=== PATIENT | female | born 1950 | race Caucasian/White ===

== ENCOUNTER 2019-10-07 10:20 | Outpatient (CLI) | payer MEDICARE, OTHER, SELFPAY ==
--- NOTE | ~2019-10-07 | MM_ITS ---
EXAMINATION: MM screening [facility] BI w leslie HISTORY: Screening mammogram TECHNIQUE: Craniocaudal and mediolateral oblique 3-D tomosynthesis images were obtained and synthetic 2-D images were generated. CAD analysis was submitted and interpreted. COMPARISON: Comparison to multiple prior studies sequentially, with oldest reviewed study dated 12/25. BREAST PARENCHYMAL COMPOSITION: There are scattered areas of fibroglandular density. FINDINGS: There is no evidence of suspicious mass, calcification, or architectural distortion to sugg est malignancy in either breast. There has been no suspicious interval change. IMPRESSION: 1. No mammographic evidence of malignancy. 2. Recommend routine screening mammography in one year. BI-RADS Category 1: Negative Reviewed, dictated and finalized at location A.
== END 2019-10-07 10:21 | disposition home or self-care (01) ==
PROVIDERS: PCP Internal Medicine; Visit Provider Internal Medicine
DX: Z12.31 Encounter for screening mammogram for malignant neoplasm of breast (principal)
CPT/HCPCS: 77063; 77067

== ENCOUNTER 2020-01-30 09:03 | Outpatient (CLI) | payer MEDICARE, OTHER, SELFPAY ==
[2020-01-30 09:48] LABS: Hemoglobin 14.8 g/dL (12.0-15.0); Mean Corpuscular HGB Conc 32.2 g/dl (32-36); Mean Corpuscular Hemoglobin 29.7 pg (26-34); Mean Corpuscular Volume 92.4 fl (80-100); Mean Platelet Volume 9.5 fl (7.4-10.4); Platelet Count Result 286 k/mm3 (150-375); Red Blood Count 4.98 M/mm3 (4.2-5.4); Red Cell Distribution Width 14.6 % (11.5-14.5); White Blood Count 6.6 K/mm3 (4.5-10.0)
[2020-01-30 09:59] LABS: Alanine Aminotransferase 18 U/L (4-35); Albumin Level 3.9 g/dL (3.5-5.1); Alkaline Phosphatase 153 U/L (38-126); Anion Gap 6 mmol/L (8-16); Aspartate Amino Transferase 11 U/L (14-36); Bilirubin,Total 0.4 mg/dL (0.2-1.3); Blood Urea Nitrogen 22 mg/dL (7-17); Calcium 8.3 mg/dL (8.4-10.2); Carbon Dioxide 27 mmol/L (22-30); Chloride 106 mmol/L (98-107); Cholesterol 190 mg/dL (0-200); Estimated Glomerular Filt Rate 55; Glucose 127 mg/dL (65-105); HDL Direct 57 mg/dL; Potassium 4.5 mmol/L (3.4-5.0); Sodium 139 mmol/L (137-145); Triglycerides 147 mg/dL (<150)
[2020-01-30 10:00] LABS: Hemoglobin A1C 6.1 % (<5.7)
[2020-01-30 10:10] LABS: LDL Cholesterol Direct 92 mg/dL
[2020-02-02 10:12] LABS: Mitochondrial (M2) Ab (IgG) <=20.0 U (<=20.0)
== END 2020-01-30 09:04 | disposition home or self-care (01) ==
LOC: ANHLAB 09:05
PROVIDERS: PCP Internal Medicine; Visit Provider Internal Medicine
DX: R74.8 Abnormal levels of other serum enzymes (principal); I10 Essential (primary) hypertension; R53.83 Other fatigue; R73.9 Hyperglycemia, unspecified
CPT/HCPCS: 36415; 80053; 80061; 83036; 83520; 84443; 85027

== ENCOUNTER 2021-01-09 11:59 | Outpatient (CLI) | payer MEDICARE, OTHER, SELFPAY ==
[2021-01-09 12:21] LABS: Basophils Absolute Auto 0.1 K/mm3 (0.0-0.1); Basophils Percent Auto 1.1 % (0.2-1.2); Eosinophils Absolute Auto 0.2 K/mm3 (0-0.3); Eosinophils Percent Auto 2.9 % (0-4.4); Hematocrit 47.4 % (37.0-47.0); Hemoglobin 15.1 g/dL (12.0-15.0); Immature Granulocyte Absolute 0.02 K/mm3 (0.00-0.031); Immature Granulocyte Percent A 0.3 % (0-0.5); Lymphocytes Absolute Auto 2.14 K/mm3 (0.9-3.2); Lymphocytes Percent Auto 29.8 % (18.3-44.2); Mean Corpuscular HGB Conc 31.9 g/dl (32-36); Mean Corpuscular Hemoglobin 30.2 pg (26-34); Mean Corpuscular Volume 94.8 fl (80-100); Mean Platelet Volume 9.9 fl (7.4-10.4); Monocytes Absolute Auto 0.6 K/mm3 (0.1-0.6); Monocytes Percent Auto 8.2 % (2.6-8.5); Neutrophils Absolute Auto 4.2 K/mm3 (1.3-6.7); Neutrophils Percent Auto 57.7 % (45.5-73.1); Platelet Count Result 249 k/mm3 (150-375); Red Cell Distribution Width 14.6 % (11.5-14.5); White Blood Count 7.2 K/mm3 (4.5-10.0)
[2021-01-09 12:59] LABS: Hemoglobin A1C 6.4 % (<5.7)
[2021-01-09 13:53] LABS: Alanine Aminotransferase 22 U/L (4-35); Alkaline Phosphatase 154 U/L (38-126); Anion Gap 7 mmol/L (8-16); Aspartate Amino Transferase 16 U/L (14-36); Bilirubin,Total 0.6 mg/dL (0.2-1.3); Blood Urea Nitrogen 21 mg/dL (7-17); Calcium 8.8 mg/dL (8.4-10.2); Carbon Dioxide 27 mmol/L (22-30); Chloride 107 mmol/L (98-107); Cholesterol 212 mg/dL (0-200); Estimated Glomerular Filt Rate 55; Glucose 118 mg/dL (65-110); HDL Direct 62 mg/dL; Potassium 4.3 mmol/L (3.4-5.0); Sodium 141 mmol/L (137-145); Triglycerides 145 mg/dL (<150)
[2021-01-09 13:59] LABS: LDL Cholesterol Direct 86 mg/dL
[2021-01-09 14:54] LABS: Folic Acid 4.5 ng/mL (2.76->20)
== END 2021-01-09 12:00 | disposition home or self-care (01) ==
LOC: ANHLAB 12:01
PROVIDERS: PCP Internal Medicine; Visit Provider Internal Medicine
DX: R53.83 Other fatigue (principal); R73.9 Hyperglycemia, unspecified; E78.5 Hyperlipidemia, unspecified
CPT/HCPCS: 36415; 80053; 80061; 82607; 82746; 83036; 84443; 85025

== ENCOUNTER 2022-02-04 09:15 | Outpatient (CLI) | payer MEDICARE, OTHER, SELFPAY ==
[2022-02-04 10:10] LABS: Basophils Absolute Auto 0.1 K/mm3 (0.0-0.1); Basophils Percent Auto 1.1 % (0.2-1.2); Eosinophils Absolute Auto 0.2 K/mm3 (0-0.3); Eosinophils Percent Auto 2.6 % (0-4.4); Hematocrit 45.6 % (37.0-47.0); Hemoglobin 14.7 g/dL (12.0-15.0); Immature Granulocyte Absolute 0.02 K/mm3 (0.00-0.031); Immature Granulocyte Percent A 0.3 % (0-0.5); Lymphocytes Absolute Auto 2.52 K/mm3 (0.9-3.2); Lymphocytes Percent Auto 31.5 % (18.3-44.2); Mean Corpuscular HGB Conc 32.2 g/dl (32-36); Mean Corpuscular Hemoglobin 30.6 pg (26-34); Mean Platelet Volume 9.3 fl (7.4-10.4); Monocytes Absolute Auto 0.8 K/mm3 (0.1-0.6); Monocytes Percent Auto 9.6 % (2.6-8.5); Neutrophils Absolute Auto 4.4 K/mm3 (1.3-6.7); Neutrophils Percent Auto 54.9 % (45.5-73.1); Platelet Count Result 272 k/mm3 (150-375); Red Cell Distribution Width 15.2 % (11.5-14.5)
[2022-02-04 10:20] LABS: Alanine Aminotransferase 25 U/L (6-35); Albumin Level 4.1 g/dL (3.5-5.1); Alkaline Phosphatase 152 U/L (38-126); Anion Gap 13 mmol/L (8-16); Aspartate Amino Transferase 15 U/L (14-36); Bilirubin,Total 0.6 mg/dL (0.2-1.3); Blood Urea Nitrogen 17 mg/dL (7-17); Calcium 8.2 mg/dL (8.4-10.2); Carbon Dioxide 28 mmol/L (22-30); Chloride 102 mmol/L (98-107); Cholesterol 207 mg/dL (0-200); Estimated Glomerular Filt Rate 54; Glucose 130 mg/dL (65-110); HDL Direct 63 mg/dL; Potassium 4.4 mmol/L (3.4-5.0); Sodium 143 mmol/L (137-145); Triglycerides 138 mg/dL (<150)
[2022-02-04 10:31] LABS: LDL Cholesterol Direct 94 mg/dL
== END 2022-02-04 09:16 | disposition home or self-care (01) ==
PROVIDERS: PCP Internal Medicine; Visit Provider Internal Medicine
DX: E78.5 Hyperlipidemia, unspecified (principal); R53.83 Other fatigue; R73.9 Hyperglycemia, unspecified; I10 Essential (primary) hypertension
CPT/HCPCS: 36415; 80053; 80061; 85025

== ENCOUNTER 2022-08-10 09:15 | Outpatient (CLI) | payer MEDICARE, SELFPAY ==
[2022-08-10 10:07] LABS: Basophils Absolute Auto 0.1 K/mm3 (0.0-0.1); Basophils Percent Auto 0.9 % (0.2-1.2); Eosinophils Absolute Auto 0.2 K/mm3 (0-0.3); Eosinophils Percent Auto 2.6 % (0-4.4); Hematocrit 47.4 % (37.0-47.0); Hemoglobin 14.7 g/dL (12.0-15.0); Immature Granulocyte Absolute 0.02 K/mm3 (0.00-0.031); Immature Granulocyte Percent A 0.3 % (0-0.5); Lymphocytes Absolute Auto 2.51 K/mm3 (0.9-3.2); Lymphocytes Percent Auto 33.1 % (18.3-44.2); Mean Corpuscular Hemoglobin 30.2 pg (26-34); Mean Corpuscular Volume 97.5 fl (80-100); Mean Platelet Volume 9.6 fl (7.4-10.4); Monocytes Absolute Auto 0.7 K/mm3 (0.1-0.6); Monocytes Percent Auto 9.2 % (2.6-8.5); Neutrophils Absolute Auto 4.1 K/mm3 (1.3-6.7); Neutrophils Percent Auto 53.9 % (45.5-73.1); Platelet Count Result 290 k/mm3 (150-375); Red Blood Count 4.86 M/mm3 (4.2-5.4); Red Cell Distribution Width 14.9 % (11.5-14.5); White Blood Count 7.6 K/mm3 (4.5-10.0)
[2022-08-10 10:41] LABS: Alanine Aminotransferase 33 U/L (6-35); Albumin Level 4.2 g/dL (3.5-5.1); Alkaline Phosphatase 167 U/L (38-126); Anion Gap 7 mmol/L (8-16); Aspartate Amino Transferase 16 U/L (14-36); Bilirubin,Total 0.8 mg/dL (0.2-1.3); Blood Urea Nitrogen 23 mg/dL (7-17); Calcium 8.4 mg/dL (8.4-10.2); Carbon Dioxide 29 mmol/L (22-30); Chloride 106 mmol/L (98-107); Cholesterol 205 mg/dL (0-200); Estimated Glomerular Filt Rate > 60; Glucose 122 mg/dL (65-110); HDL Direct 57 mg/dL; Potassium 4.2 mmol/L (3.4-5.0); Sodium 142 mmol/L (137-145); Triglycerides 126 mg/dL (<150)
[2022-08-10 10:52] LABS: LDL Cholesterol Direct 94 mg/dL
[2022-08-10 11:00] LABS: Hemoglobin A1C 6.2 % (<5.7)
[2022-08-10 11:48] LABS: Folic Acid > 20.0 ng/mL (2.76->20)
[2022-08-10 13:07] LABS: Vitamin D 25 Hydroxy 32.4 ng/mL
== END 2022-08-10 09:16 | disposition home or self-care (01) ==
PROVIDERS: PCP Internal Medicine; Visit Provider Internal Medicine
DX: K21.9 Gastro-esophageal reflux disease without esophagitis (principal); R73.9 Hyperglycemia, unspecified; R53.83 Other fatigue; E78.5 Hyperlipidemia, unspecified; R74.8 Abnormal levels of other serum enzymes; E53.8 Deficiency of other specified B group vitamins; E55.9 Vitamin D deficiency, unspecified
CPT/HCPCS: 36415; 80053; 80061; 82306; 82607; 82746; 83036; 84443; 85025

== ENCOUNTER 2022-09-14 18:46 | Emergency (ER) | payer MEDICARE, SELFPAY ==
--- NOTE | ~2022-09-14 | CT_ITS ---
Non-contrast CT scan of the Abdomen and Pelvis Clinical indication: Right flank pain Technique: 2.5 mm axial scans were obtained through the abdomen and pelvis without intravenous or or al contrast. Dose reduction technique was used on this scan by utilizing automated exposure control a nd iterative reconstruction technique. The dose-length product (DLP) was 1158.62 mGy-cm. Findings: Images through the lung bases reveal bibasilar scarring and right basilar calcified granul omas. Small hiatal hernia present. There is no evidence of renal or ureteral calculi. The kidneys and the ureters are nondilated. The liver, spleen, pancreas, and adrenals appear normal. Cholecystectomy clips are present. There is no aortic aneurysm. There is no evidence of bowel obstruction. No evidence to suggest appendicitis. Images through the pelvis were performed. There is no evidence of ascites or lymphadenopathy. Urinary bladder unremarkable. Patient is post hysterectomy. No pelvic mass seen. Impression: Small hiatal hernia. No other significant findings. Reviewed, dictated and finalized at [facility]. Impression: Small hiatal hernia. No other significant findings.
[2022-09-14 19:26] VITALS: BP 149/103; PULSE 94; RESP 16; TEMP 36.5; O2SAT 97
[2022-09-14 20:32] LABS: Basophils Absolute Auto 0.1 K/mm3 (0.0-0.1); Basophils Percent Auto 1.1 % (0.2-1.2); Eosinophils Absolute Auto 0.1 K/mm3 (0-0.3); Hematocrit 49.8 % (37.0-47.0); Hemoglobin 16.2 g/dL (12.0-15.0); Immature Granulocyte Absolute 0.02 K/mm3 (0.00-0.031); Immature Granulocyte Percent A 0.2 % (0-0.5); Lymphocytes Absolute Auto 2.27 K/mm3 (0.9-3.2); Lymphocytes Percent Auto 27.5 % (18.3-44.2); Mean Corpuscular HGB Conc 32.5 g/dl (32-36); Mean Corpuscular Hemoglobin 31.2 pg (26-34); Mean Corpuscular Volume 95.8 fl (80-100); Mean Platelet Volume 9.3 fl (7.4-10.4); Monocytes Absolute Auto 0.7 K/mm3 (0.1-0.6); Monocytes Percent Auto 7.9 % (2.6-8.5); Neutrophils Absolute Auto 5.1 K/mm3 (1.3-6.7); Neutrophils Percent Auto 62.3 % (45.5-73.1); Platelet Count Result 286 k/mm3 (150-375); Red Cell Distribution Width 14.8 % (11.5-14.5); White Blood Count 8.3 K/mm3 (4.5-10.0)
[2022-09-14 20:43] LABS: Alanine Aminotransferase 39 U/L (6-35); Albumin Level 4.6 g/dL (3.5-5.1); Alkaline Phosphatase 165 U/L (38-126); Anion Gap 10 mmol/L (8-16); Aspartate Amino Transferase 19 U/L (14-36); Bilirubin,Total 0.7 mg/dL (0.2-1.3); Blood Urea Nitrogen 18 mg/dL (7-17); Calcium 8.7 mg/dL (8.4-10.2); Carbon Dioxide 25 mmol/L (22-30); Chloride 105 mmol/L (98-107); Estimated CRCL calculation 67 ml/min; Estimated Glomerular Filt Rate > 60; Glucose 119 mg/dL (65-110); Potassium 4.2 mmol/L (3.4-5.0); Sodium 140 mmol/L (137-145)
[2022-09-14 22:22] LABS: Appearance Urine Clear (Clear); Bilirubin Urine Negative (Negative); Blood Urine Negative (Negative); Color Urine Yellow (Yellow); Glucose Urine UA Negative (Negative); Ketones Urine Negative (Negative); Leukocyte Esterase Ur Negative LEU/UL (Negative); Nitrate Urine Negative (Negative); Protein Urine Negative (Negative); Specific Grav Ur 1.013 (1.001-1.035); pH Urine 6.5 (5.0-9.0)
[2022-09-14 22:28] LABS: Add Urine Microscopic? NO
[2022-09-14 23:34] VITALS: BP 156/90; PULSE 82; RESP 15; TEMP 37.1; O2SAT 98
[2022-09-15 01:16] VITALS: BP 130/73; PULSE 83; RESP 15; O2SAT 97
--- NOTE | 2022-09-15 03:14 | ED.GENADULT ---
HPI - General Adult General Chief complaint: Urogenital-Female <Adelina Ventura PA-C - Last Filed: 09/15/22 04:07> Stated complaint: flank pain <HUDSON Ugarte Last Filed: 09/15/22 04:07> Time Seen by Provider: 09/15/22 00:33 <HUDSON Ugarte Last Filed: 09/15/22 04:07> Source: patient <HUDSON Ugarte Last Filed: 09/15/22 04:07> Mode of arrival: ambulatory <HUDSON Ugarte Last Filed: 09/15/22 04:07> Limitations: no limitations <HUDSON Ugarte Last Filed: 09/15/22 04:07> History of Present Illness HPI narrative: Patient is a 71-year-old female who presents the ED with report of right flank pain. Patient reports she had mild twinges in her right flank/mid back region on Monday. She started drinking more water to try to flush her system. Pain became more severe pain around 5 PM. She describes the pain as spasms, worse with any type of movement. Pain does not radiate to abdomen. She has tried taking Tylenol at home without much improvement. She does report mild nausea, but denies any vomiting, diarrhea, constipation, fevers, urinary symptoms, chest pain, difficulty breathing, pain with inspiration. Denies history of similar pain. Denies history of kidney stones. Denies any recent heavy lifting or strenuous activity. <Adelina Ventura PA-C - Last Filed: 09/15/22 04:07> Related Data Home medications: Home Medications Medication Instructions Recorded Confirmed acetaminophen 325 mg capsule 325 mg PO Q6H PRN 07/07/20 08/12/22 (Tylenol) <HUDSON Ugarte Last Filed: 09/15/22 04:07> Allergies/adverse reactions: Allergies Allergy/AdvReac Type Severity Reaction Status Date / Time aspirin Allergy Mild throat Verified 08/12/22 13:01 swelling codeine Allergy Mild hallucinati Verified 08/12/22 13:01 ons meperidine Allergy Mild tachycardia Verified 08/12/22 13:01 NSAIDS (Non-Steroidal Allergy Mild throat Verified 08/12/22 13:01 Anti-Inflamma swelling Penicillins Allergy Mild rash Verified 08/12/22 13:01 Quinolones Allergy Mild HIVES Verified 08/12/22 13:01 vancomycin Allergy Mild HIVES Verified 08/12/22 13:01 <Adelina Ventura PA-C - Last Filed: 09/15/22 04:07> Review of Systems Review of Systems: CONSTITUTIONAL: Denies fever, chills, or sweats. CARDIOVASCULAR: Denies chest pain. RESPIRATORY: Denies cough or dyspnea. GASTROINTESTINAL: See HPI. GENITOURINARY: Denies dysuria or hematuria. MUSCULOSKELETAL: See HPI. NEUROLOGIC: Denies headache, numbness, or weakness. <Adelina Ventura PA-C - Last Filed: 09/15/22 04:07> All systems reviewed & are unremarkable except as noted in HPI and below <Adelina Ventura PA-C - Last Filed: 09/15/22 04:07> [facility] Past Medical History Medical History: Medical History Essential (primary) hypertension Pure hypercholesterolemia <Adelina Ventura PA-C - Last Filed: 09/15/22 04:07> Surgical History Surgical History: Surgical History History of hysterectomy <Adelina Ventura PA-C - Last Filed: 09/15/22 04:07> Family History Family History: Family History Father Family history of diabetes mellitus in first degree relative, Onset Age: 72 Mother Hypertension Patient's mother is Sibling Heart attack Other Cerebrovascular accident Diabetes mellitus <Adelina Ventura PA-C - Last Filed: 09/15/22 04:07> Social History Social History: Social History Smoking status: Former smoker Second hand tobacco smoke exposure: No Smoking end date: 06/05/70 Alcohol intake: never Substance use: never Lack o
--- NOTE | 2022-09-15 03:23 | PC.NURSE ---
Patient stated that she did not want IV Tylenol or IV fluids and would prefer Tylenol PO. Notified
[2022-09-15] MEDS: CYCLOBENZAPRINE HCL 5 MG TABLET PO (03:31)
[2022-09-15] MEDS: ACETAMINOPHEN 500 MG TABLET 1000 MG PO (03:32)
[2022-09-15 04:01] VITALS: PULSE 75; RESP 15; O2SAT 94
[2022-09-15 05:01] VITALS: BP 141/77; PULSE 66; RESP 17; TEMP 36.4; O2SAT 98
== END 2022-09-15 05:02 | disposition home or self-care (01) ==
PROVIDERS: General Practice; Emergency Provider Emergency Medicine; PCP Internal Medicine
DX: R10.9 Unspecified abdominal pain (principal); M62.838 Other muscle spasm; I10 Essential (primary) hypertension; E78.00 Pure hypercholesterolemia, unspecified; Z87.891 Personal history of nicotine dependence
CPT/HCPCS: 36415; 74176; 80053; 81003; 85025; 99284; A9270

== ENCOUNTER 2022-10-05 13:04 | Outpatient (CLI) | payer MEDICARE, SELFPAY ==
--- NOTE | ~2022-10-05 | CT_ITS ---
Non-contrast CT scan of the Abdomen and Pelvis Clinical indication: Right flank pain Technique: 2.5 mm axial scans were obtained through the abdomen and pelvis without intravenous or or al contrast. Dose reduction technique was used on this scan by utilizing automated exposure control a nd iterative reconstruction technique. The dose-length product (DLP) was 1420.08 mGy-cm. COMPARISON: 09/15/2022 Findings: Images through the lung bases reveal no abnormalities. Small hiatal hernia noted. There is no evidence of renal or ureteral calculi. The kidneys and the ureters are nondilated. The liver, spleen, pancreas, and adrenals appear normal. Cholecystectomy clips are present. There is no aortic aneurysm. There is no evidence of bowel obstruction. Images through the pelvis were performed. There is no evidence of ascites or lymphadenopathy. Urinary bladder unremarkable. No pelvic mass seen. Impression: Small hiatal hernia, otherwise unremarkable exam. Reviewed, dictated and finalized at [facility]. Impression: Small hiatal hernia, otherwise unremarkable exam.
== END 2022-10-05 13:05 | disposition home or self-care (01) ==
PROVIDERS: PCP Internal Medicine; Visit Provider Physician Assistant
DX: R10.9 Unspecified abdominal pain (principal); K44.9 Diaphragmatic hernia without obstruction or gangrene
CPT/HCPCS: 74176

== ENCOUNTER 2023-02-16 09:16 | Outpatient (CLI) | payer MEDICARE, SELFPAY ==
[2023-02-16 09:35] LABS: Basophils Absolute Auto 0.1 K/mm3 (0.0-0.1); Eosinophils Absolute Auto 0.2 K/mm3 (0-0.3); Eosinophils Percent Auto 2.8 % (0-4.4); Hematocrit 48.6 % (37.0-47.0); Hemoglobin 15.4 g/dL (12.0-15.0); Immature Granulocyte Absolute 0.02 K/mm3 (0.00-0.031); Immature Granulocyte Percent A 0.3 % (0-0.5); Mean Corpuscular HGB Conc 31.7 g/dl (32-36); Mean Corpuscular Hemoglobin 30.5 pg (26-34); Mean Corpuscular Volume 96.2 fl (80-100); Mean Platelet Volume 9.3 fl (7.4-10.4); Monocytes Absolute Auto 0.6 K/mm3 (0.1-0.6); Monocytes Percent Auto 8.4 % (2.6-8.5); Neutrophils Absolute Auto 3.8 K/mm3 (1.3-6.7); Neutrophils Percent Auto 55.5 % (45.5-73.1); Platelet Count Result 259 k/mm3 (150-375); Red Blood Count 5.05 M/mm3 (4.2-5.4); Red Cell Distribution Width 14.5 % (11.5-14.5); White Blood Count 6.9 K/mm3 (4.5-10.0)
[2023-02-16 09:44] LABS: Alanine Aminotransferase 29 U/L (6-35); Albumin Level 4.2 g/dL (3.5-5.1); Alkaline Phosphatase 143 U/L (38-126); Anion Gap 3 mmol/L (8-16); Aspartate Amino Transferase 17 U/L (14-36); Bilirubin,Total 0.6 mg/dL (0.2-1.3); Blood Urea Nitrogen 20 mg/dL (7-17); Calcium 8.8 mg/dL (8.4-10.2); Carbon Dioxide 32 mmol/L (22-30); Chloride 104 mmol/L (98-107); Cholesterol 219 mg/dL (0-200); Estimated Glomerular Filt Rate 54; Glucose 142 mg/dL (65-110); HDL Direct 58 mg/dL; Magnesium 1.9 mg/dL (1.6-2.3); Potassium 4.6 mmol/L (3.4-5.0); Sodium 139 mmol/L (137-145); Triglycerides 165 mg/dL (<150)
[2023-02-16 09:55] LABS: LDL Cholesterol Direct 105 mg/dL
[2023-02-16 10:28] LABS: Vitamin D 25 Hydroxy 27.2 ng/mL
[2023-02-20 23:25] LABS: Mitochondrial (M2) Ab (IgG) <=20.0 U (<=20.0)
== END 2023-02-16 09:17 | disposition home or self-care (01) ==
PROVIDERS: PCP Internal Medicine; Visit Provider Internal Medicine
DX: E78.5 Hyperlipidemia, unspecified (principal); I10 Essential (primary) hypertension; R53.83 Other fatigue; R73.9 Hyperglycemia, unspecified; R74.8 Abnormal levels of other serum enzymes; E55.9 Vitamin D deficiency, unspecified
CPT/HCPCS: 36415; 80053; 80061; 82306; 82607; 83036; 83520; 83735; 84443; 85025

== ENCOUNTER → 2023-03-13 14:53 | Outpatient (REF) | payer MEDICARE, SELFPAY | LOC: ANHLAB 14:53 | PROVIDERS: PCP Internal Medicine; Visit Provider Plastic Surgery | DX: R22.0 Localized swelling, mass and lump, head (principal) | CPT/HCPCS: 88305; 88342 ==

== ENCOUNTER 2023-08-09 09:01 | Outpatient (CLI) | payer MEDICARE, SELFPAY ==
[2023-08-09 09:32] LABS: Basophils Absolute Auto 0.1 K/mm3 (0.0-0.1); Eosinophils Absolute Auto 0.2 K/mm3 (0-0.3); Eosinophils Percent Auto 2.9 % (0-4.4); Hematocrit 47.4 % (37.0-47.0); Hemoglobin 14.9 g/dL (12.0-15.0); Immature Granulocyte Absolute 0.03 K/mm3 (0.00-0.031); Immature Granulocyte Percent A 0.4 % (0-0.5); Lymphocytes Absolute Auto 2.52 K/mm3 (0.9-3.2); Lymphocytes Percent Auto 32.8 % (18.3-44.2); Mean Corpuscular HGB Conc 31.4 g/dl (32-36); Mean Corpuscular Hemoglobin 30.6 pg (26-34); Mean Corpuscular Volume 97.3 fl (80-100); Mean Platelet Volume 9.5 fl (7.4-10.4); Monocytes Absolute Auto 0.7 K/mm3 (0.1-0.6); Monocytes Percent Auto 8.5 % (2.6-8.5); Neutrophils Absolute Auto 4.2 K/mm3 (1.3-6.7); Neutrophils Percent Auto 54.4 % (45.5-73.1); Platelet Count Result 281 k/mm3 (150-375); Red Blood Count 4.87 M/mm3 (4.2-5.4); Red Cell Distribution Width 14.8 % (11.5-14.5); White Blood Count 7.7 K/mm3 (4.5-10.0)
[2023-08-09 09:42] LABS: Alanine Aminotransferase 25 U/L (6-35); Alkaline Phosphatase 181 U/L (38-126); Anion Gap 6 mmol/L (8-16); Aspartate Amino Transferase 15 U/L (14-36); Bilirubin,Total 0.6 mg/dL (0.2-1.3); Blood Urea Nitrogen 20 mg/dL (7-17); Calcium 8.8 mg/dL (8.4-10.2); Carbon Dioxide 29 mmol/L (22-30); Chloride 107 mmol/L (98-107); Cholesterol 201 mg/dL (0-200); Estimated Glomerular Filt Rate 54; Glucose 110 mg/dL (65-110); HDL Direct 59 mg/dL; Potassium 3.9 mmol/L (3.4-5.0); Sodium 142 mmol/L (137-145); Triglycerides 162 mg/dL (<150)
[2023-08-09 09:53] LABS: LDL Cholesterol Direct 96 mg/dL
[2023-08-09 10:27] LABS: Vitamin D 25 Hydroxy 24.3 ng/mL
[2023-08-09 10:41] LABS: Hemoglobin A1C 6.4 % (<5.7)
== END 2023-08-09 09:02 | disposition home or self-care (01) ==
LOC: ANHLAB 09:05
PROVIDERS: PCP Internal Medicine; Visit Provider Internal Medicine
DX: E55.9 Vitamin D deficiency, unspecified (principal); E78.5 Hyperlipidemia, unspecified; I10 Essential (primary) hypertension; R53.83 Other fatigue; R73.9 Hyperglycemia, unspecified
CPT/HCPCS: 36415; 80053; 80061; 82306; 83036; 83735; 84443; 85025

== ENCOUNTER 2023-08-24 11:46 | Emergency (ER) | payer MEDICARE, SELFPAY ==
--- NOTE | ~2023-08-24 | CT_ITS ---
EXAMINATION: CT abdomen pelvis w con INDICATION: Lower abdominal and rectal pain TECHNIQUE: Computed tomographic images of the abdomen and pelvis were obtained after the administrati on of 100 cc of Omnipaque 350 intravenous contrast. The dose-length product (DLP) was 1381.59 mGy-cm. Automated exposure control and iterative reconstruction technique were employed. COMPARISON: 10/05/2022 FINDINGS: Minimal dependent atelectasis is present in the lung bases. The heart size is normal. There is a small sliding hiatal hernia. Chronic areas of low attenuation in the liver likely reflect focal fatty infiltration. Changes of cholecystectomy are noted. Punctate calcifications in an otherwise no rmal spleen likely represent healed granulomatous disease. The pancreas and adrenal glands are normal . Cysts of the kidneys measure up to 1.3 cm on the right. No pathologically enlarged abdominal or pel ashley lymph nodes are identified. No free intraperitoneal gas or evidence of bowel obstruction. Colonic diverticulosis is present without evidence of diverticulitis. There are changes of mesh ventral esdras ia repair. There is moderate lumbar spondylosis. IMPRESSION: 1. No CT correlate for the patient's symptoms. Reviewed, dictated and finalized at location F.
[2023-08-24 12:17] VITALS: BP 159/85; PULSE 95; RESP 16; TEMP 36.7; O2SAT 96
[2023-08-24 14:13] VITALS: BP 122/64; PULSE 78; RESP 18; O2SAT 98
--- NOTE | 2023-08-24 14:27 | ED.GENADULT ---
HPI - General Adult General Chief complaint: Unspecified Stated complaint: problems with my rectum Time Seen by Provider: 08/24/23 14:08 History of Present Illness HPI narrative: Patient is a 72-year-old female who presents ER with rectal discomfort. Ongoing over last week. Feels like she is leaking stool which she does not typically do. She has tried to get in with GI but cannot. she was concerned she had a hemorrhoid so she tried some preparation H and almost had a syncopal episode after touching her rectum. No pelvic pain. Has history of diverticulosis but not diverticulitis. No alleviating factors. Related Data Home Medications Medication Instructions Recorded Confirmed acetaminophen 325 mg capsule 325 mg PO Q6H PRN 07/07/20 08/21/23 (Tylenol) Allergies Allergy/AdvReac Type Severity Reaction Status Date / Time aspirin Allergy Mild throat Verified 08/24/23 11:46 swelling codeine Allergy Mild hallucinati Verified 08/24/23 11:46 ons meperidine Allergy Mild tachycardia Verified 08/24/23 11:46 NSAIDS (Non-Steroidal Allergy Mild throat Verified 08/24/23 11:46 Anti-Inflamma swelling Penicillins Allergy Mild rash Verified 08/24/23 11:46 Quinolones Allergy Mild HIVES Verified 08/24/23 11:46 vancomycin Allergy Mild HIVES Verified 08/24/23 11:46 red dye Allergy Unknown Hives Verified 08/24/23 11:46 Review of Systems Review of Systems: All systems reviewed & are unremarkable except as noted in HPI and below Constitutional: Constitutional: Reports no additional constitutional complaints ENT: Reports system reviewed and no additional complaints, except as documented Cardiovascular: Cardiovascular: Reports no additional cardiovascular complaints Respiratory: Respiratory: Reports no additional respiratory complaints Gastrointestinal: Gastrointestinal: Denies abdominal pain, Denies diarrhea, Denies nausea and Denies vomiting Comments: Rectal pain Genitourinary: Genitourinary: Reports no additional female genitourinary complaints [facility] Past Medical History Medical History Degenerative arthritis of knee, bilateral Severe medial compartment arthritis both knees Essential (primary) hypertension Pure hypercholesterolemia Surgical History Surgical History History of breast biopsy History of cholecystectomy History of hysterectomy History of nasal surgery Family History Family History Father Family history of diabetes mellitus in first degree relative, Onset Age: 72 Heart attack Lung cancer Arthritis Mother Hypertension Patient's mother is Heart attack Arthritis Sibling Heart attack Other Cerebrovascular accident Diabetes mellitus Social History Social History Smoking status: Former smoker Second hand tobacco smoke exposure: No Smoking end date: 06/05/70 Alcohol intake: never Substance use: never Lack of Transportation: No Lack of Food: Never True Current Housing: I Have Housing Concerned About Future Housing: No Difficulty Paying Gas/Electric Bills: No Difficulty Paying for Meds: No Currently Unemployed: No Education: Bachelor's Degree Difficulty w/ Childcare or Family Care: No Living arrangements: alone Occupation/Education: retired Exam Narrative: GENERAL: Well-appearing, well-nourished, and in no acute distress. HEAD: Normocephalic, atraumatic. ENT: Mucous membranes moist. NECK: Supple. CHEST: Clear to auscultation. No respiratory distress. HEART: Regular rate and rhythm. Normal peripheral pulses. ABDOMEN: Soft, nontender, nondistended. normal appearing rectum without fissure, 1 small nonthrombosed nonbleeding nontender external hemorrhoid. Digital rectal exam with soft stool
[2023-08-24 14:42] LABS: Basophils Absolute Auto 0.1 K/mm3 (0.0-0.1); Basophils Percent Auto 0.9 % (0.2-1.2); Eosinophils Absolute Auto 0.1 K/mm3 (0-0.3); Eosinophils Percent Auto 0.9 % (0-4.4); Hemoglobin 14.6 g/dL (12.0-15.0); Immature Granulocyte Absolute 0.02 K/mm3 (0.00-0.031); Immature Granulocyte Percent A 0.3 % (0-0.5); Lymphocytes Absolute Auto 2.43 K/mm3 (0.9-3.2); Lymphocytes Percent Auto 32.1 % (18.3-44.2); Mean Corpuscular HGB Conc 32.4 g/dl (32-36); Mean Corpuscular Hemoglobin 30.9 pg (26-34); Mean Corpuscular Volume 95.1 fl (80-100); Mean Platelet Volume 9.3 fl (7.4-10.4); Monocytes Absolute Auto 0.8 K/mm3 (0.1-0.6); Monocytes Percent Auto 9.9 % (2.6-8.5); Neutrophils Absolute Auto 4.2 K/mm3 (1.3-6.7); Neutrophils Percent Auto 55.9 % (45.5-73.1); Platelet Count Result 285 k/mm3 (150-375); Red Blood Count 4.73 M/mm3 (4.2-5.4); Red Cell Distribution Width 14.6 % (11.5-14.5); White Blood Count 7.6 K/mm3 (4.5-10.0)
[2023-08-24 14:43] LABS: Appearance Urine Clear (Clear); Bilirubin Urine Negative (Negative); Blood Urine Negative (Negative); Color Urine Yellow (Yellow); Glucose Urine UA Negative (Negative); Ketones Urine 1+ mg/dL (Negative); Leukocyte Esterase Ur Negative LEU/UL (Negative); Nitrate Urine Negative (Negative); Protein Urine Negative (Negative); Specific Grav Ur 1.024 (1.001-1.035); pH Urine 5.5 (5.0-9.0)
[2023-08-24 14:47] LABS: Add Urine Microscopic? NO
[2023-08-24 14:52] LABS: Alanine Aminotransferase 28 U/L (6-35); Albumin Level 3.9 g/dL (3.5-5.1); Alkaline Phosphatase 135 U/L (38-126); Anion Gap -1 mmol/L (8-16); Aspartate Amino Transferase 16 U/L (14-36); Bilirubin,Total 0.6 mg/dL (0.2-1.3); Blood Urea Nitrogen 16 mg/dL (7-17); Calcium 8.8 mg/dL (8.4-10.2); Carbon Dioxide 31 mmol/L (22-30); Chloride 107 mmol/L (98-107); Estimated CRCL calculation 72 ml/min; Estimated Glomerular Filt Rate > 60; Glucose 122 mg/dL (65-110); Potassium 3.9 mmol/L (3.4-5.0); Sodium 137 mmol/L (137-145)
[2023-08-24 17:00] VITALS: BP 138/68; PULSE 73; RESP 16; O2SAT 99
[2023-08-24 18:05] VITALS: BP 129/78; PULSE 68; RESP 16; TEMP 37.1; O2SAT 100
== END 2023-08-24 18:06 | disposition home or self-care (01) ==
PROVIDERS: Emergency Provider Emergency Medicine; PCP Internal Medicine
DX: K59.00 Constipation, unspecified (principal); I10 Essential (primary) hypertension; E78.00 Pure hypercholesterolemia, unspecified; M17.0 Bilateral primary osteoarthritis of knee; Z87.891 Personal history of nicotine dependence; Z90.49 Acquired absence of other specified parts of digestive tract; Z90.710 Acquired absence of both cervix and uterus
CPT/HCPCS: 36415; 74177; 80053; 85025; 99284; Q9967

== ENCOUNTER 2023-09-26 09:28 | Outpatient (CLI) | payer MEDICARE, SELFPAY ==
--- NOTE | ~2023-09-26 | MM_ITS ---
EXAMINATION: MM screening [facility] BI w leslie HISTORY: Screening mammogram TECHNIQUE: Craniocaudal and mediolateral oblique 3-D tomosynthesis images were obtained and synthetic 2-D images were generated. CAD analysis was submitted and interpreted. COMPARISON: 10/2019, 08/18/2017 bilateral screening mammogram examinations BREAST PARENCHYMAL COMPOSITION: There are scattered areas of fibroglandular density. FINDINGS: There is no evidence of suspicious mass, calcification, or architectural distortion to sugg est malignancy in either breast. There has been no suspicious interval change. IMPRESSION: 1. No mammographic evidence of malignancy. 2. Recommend routine screening mammography in one year. BI-RADS Category 1: Negative Reviewed, dictated and finalized at location A.
== END 2023-09-26 09:29 | disposition home or self-care (01) ==
LOC: ANHIMG 09:29
PROVIDERS: PCP Internal Medicine; Visit Provider Internal Medicine
DX: Z12.31 Encounter for screening mammogram for malignant neoplasm of breast (principal)
CPT/HCPCS: 77063; 77067

== ENCOUNTER 2024-02-13 14:37 | Outpatient (CLI) | payer MEDICARE, SELFPAY ==
[2024-02-13 15:30] LABS: Alanine Aminotransferase 26 U/L (6-35); Albumin Level 4.1 g/dL (3.5-5.1); Alkaline Phosphatase 169 U/L (38-126); Anion Gap 7 mmol/L (4-12); Aspartate Amino Transferase 16 U/L (14-36); Bilirubin,Total 0.6 mg/dL (0.2-1.3); Blood Urea Nitrogen 19 mg/dL (7-17); Calcium 8.4 mg/dL (8.4-10.2); Carbon Dioxide 30 mmol/L (22-30); Chloride 102 mmol/L (98-107); Cholesterol 208 mg/dL (0-200); Estimated Glomerular Filt Rate 54; Glucose 119 mg/dL (65-110); HDL Direct 65 mg/dL; Sodium 139 mmol/L (137-145); Triglycerides 136 mg/dL (<150)
[2024-02-13 15:41] LABS: LDL Cholesterol Direct 103 mg/dL
[2024-02-13 15:51] LABS: Hemoglobin A1C 6.2 % (<5.7)
[2024-02-13 15:56] LABS: Vitamin D 25 Hydroxy 20.5 ng/mL
== END 2024-02-13 14:38 | disposition home or self-care (01) ==
LOC: ANHLAB 14:41
PROVIDERS: PCP Internal Medicine; Visit Provider Internal Medicine
DX: E78.5 Hyperlipidemia, unspecified (principal); E55.9 Vitamin D deficiency, unspecified; R73.9 Hyperglycemia, unspecified; I10 Essential (primary) hypertension; R73.03 Prediabetes
CPT/HCPCS: 36415; 80053; 80061; 82306; 83036

== ENCOUNTER 2024-08-23 06:40 | Outpatient (CLI) | payer MEDICARE, SELFPAY ==
--- OUTSIDE RECORDS SUMMARY | 2024-08-23 06:43 | XMS_ITS | Continuity of Care Document ---
Author Organization [facility] Address [address] [place] [address] Phone Care Team Providers Care Mill Laborer Name Role Phone Gurrola OD, Humberto Unavailable Unavailable Procedures Procedure Date Eye Exam & Treatment Refraction Vision Svcs Frames Purchases Progressive Lens, Polycarb Anti-reflective Coating Tax - Medical Eye Exam & Treatment Refraction Advance Directives Directive Yes / No Effective Date File Name No Information Encounters Encounter Description Practice Location Reason(s) For Visit Diagnoses Date Provider Providers Copied on Encounter [facility], [address] [place] [address] [address], [place], [place], [id number], [place] tel:[phone] [facility] No Information May- 6-200 8 Gurrola OD Humberto. [address] [place] , [address], [place], [address], [place]. tel:[phone] [facility], [address] [place] [address] [address], [place], [place], [id number], [place] tel:[phone] [facility] No Information Mar-2 6-200 7 [facility] . [address] [facility], [facility] [address], [place], [place], [id number], [place]. tel:[phone] Referring Provider: Humberto Gurrola OD A, [address], [place], [address]. tel:[phone] g Provider: Shira Mccarty, [address] [place], [address]. tel:[phone] [facility] Eye [facility], [address], [place], [place], [id number], [place] tel:[phone] [facility] No Information Jan-0 2-200 7 Gurrola OD Humberto. [address], [place], [address], [place]. tel:[phone] Family History Family Member Type Diagnosis Age At Onset No Information Payers Payer name Insurance type Covered alliance party ID Daniela flores(s) [facility] CI [id number] Social History Type Description Quantity Date Captured Comments Sex Female Smoking Status No Information Chief Complaint And Reason For Visit No Information Reason For Referral Reason For Referral No Information History Of Present Illness Encounter Date Complaint History Of Prese nt Illness No Information Functional Status Date Functional Assessmen t No Information Instructions Date Instruction Additional Infor mation No Information Assessments Type Assessment Date No Information Patient Care Teams Name Effective Dates (start - stop) Status Members No Information
--- OUTSIDE RECORDS SUMMARY | 2024-08-23 06:43 | XMS_ITS | Referral Summary ---
Author Organization [facility] [place] [address] Address [address] [place] [address] Care Team Providers Care Sticker Machine Operator Name Role Phone Cash Bird MD Primary Care Provider [phone] Allergies Active Allergy Reactions Criticality Noted Date Comments Aspirin Other (See comments) Low 03/02/2018 Throat swelling Codeine Hives Medium 03/02/2018 Meperidine Palpitations Low 03/02/2018 Nsaids (Non-Steroidal Anti-Inflammatory Drug) Other (See comments) Low 03/02/2018 Throat swells Penicillins Hives,Rash Medium 03/02/2018 All antibiotics Social History Tobacco Use Types Packs/Day Years Used Date Smoking Tobacco: Never Assessed Personal Safety Answer Date Recorded Getting School Help Needed Not on file 08/19 Comments Unknown Sex and Gender Information Value Date Recorded Sex Assigned at Not on file 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 Gender Identity Not on file Sexual Orientation Not on file Last Filed Vital Signs Vital Sign Reading Time Taken Comments Blood Pressure - - Pulse - - Temperature - - Respiratory Rate - - Oxygen Saturation - - Inhaled Oxygen Concentration - - Weight 117.9 kg (260 lb) 03/02/2018 12:51 PM CDT Height 165.1 cm (5' 5 ) 03/02/2018 12:51 PM CDT Body Mass Index 43.27 03/02/2018 12:51 PM CDT Plan of Treatment Not on file Insurance MEDICARE [employer] Care Teams Sticker Machine Operator Relationship Specialty Start Date End Date Cash Bird MD [address] [place], [place] [id number] PCP - General 12/17/10
--- OUTSIDE RECORDS SUMMARY | 2024-08-23 06:43 | XMS_ITS | Clinical Summary ---
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
[2024-08-23 07:30] LABS: Basophils Absolute Auto 0.1 K/mm3 (0.0-0.1); Basophils Percent Auto 1.1 % (0.2-1.2); Eosinophils Absolute Auto 0.2 K/mm3 (0-0.3); Hematocrit 45.3 % (37.0-47.0); Hemoglobin 14.2 g/dL (12.0-15.0); Immature Granulocyte Absolute 0.02 K/mm3 (0.00-0.031); Immature Granulocyte Percent A 0.3 % (0-0.5); Lymphocytes Absolute Auto 2.64 K/mm3 (0.9-3.2); Lymphocytes Percent Auto 35.5 % (18.3-44.2); Mean Corpuscular HGB Conc 31.3 g/dl (32-36); Mean Corpuscular Hemoglobin 30.5 pg (26-34); Mean Corpuscular Volume 97.2 fl (80-100); Mean Platelet Volume 9.5 fl (7.4-10.4); Monocytes Absolute Auto 0.7 K/mm3 (0.1-0.6); Monocytes Percent Auto 9.4 % (2.6-8.5); Neutrophils Absolute Auto 3.9 K/mm3 (1.3-6.7); Neutrophils Percent Auto 51.7 % (45.5-73.1); Platelet Count Result 271 k/mm3 (150-375); Red Blood Count 4.66 M/mm3 (4.2-5.4); Red Cell Distribution Width 14.6 % (11.5-14.5); White Blood Count 7.4 K/mm3 (4.5-10.0)
[2024-08-23 07:43] LABS: Alanine Aminotransferase 25 U/L (6-35); Albumin Level 3.8 g/dL (3.5-5.1); Alkaline Phosphatase 150 U/L (38-126); Anion Gap 7 mmol/L (4-12); Aspartate Amino Transferase 14 U/L (14-36); Bilirubin,Total 0.5 mg/dL (0.2-1.3); Blood Urea Nitrogen 27 mg/dL (7-17); Calcium 8.4 mg/dL (8.4-10.2); Carbon Dioxide 27 mmol/L (22-30); Chloride 107 mmol/L (98-107); Cholesterol 202 mg/dL (0-200); Estimated Glomerular Filt Rate 52; Glucose 120 mg/dL (65-110); HDL Direct 63 mg/dL; Potassium 4.1 mmol/L (3.4-5.0); Sodium 141 mmol/L (137-145); Triglycerides 120 mg/dL (<150)
[2024-08-23 07:46] LABS: Hemoglobin A1C 6.2 % (<5.7)
[2024-08-23 07:55] LABS: LDL Cholesterol Direct 86 mg/dL
[2024-08-23 09:50] LABS: Vitamin D 25 Hydroxy 25.7 ng/mL
== END 2024-08-23 06:41 | disposition home or self-care (01) ==
LOC: ANHLAB 06:41
PROVIDERS: PCP Internal Medicine; Visit Provider Internal Medicine
DX: R73.03 Prediabetes (principal); R53.83 Other fatigue; E55.9 Vitamin D deficiency, unspecified; I10 Essential (primary) hypertension; E78.5 Hyperlipidemia, unspecified
CPT/HCPCS: 36415; 80053; 80061; 82306; 83036; 85025

== ENCOUNTER 2024-11-28 13:44 | Outpatient (CLI) | payer MEDICARE, SELFPAY ==
[2024-11-28 14:33] LABS: Hematocrit 45.2 % (37.0-47.0); Hemoglobin 14.6 g/dL (12.0-15.0); Mean Corpuscular HGB Conc 32.3 g/dl (32-36); Mean Corpuscular Hemoglobin 31.1 pg (26-34); Mean Corpuscular Volume 96.4 fl (80-100); Mean Platelet Volume 9.8 fl (7.4-10.4); Platelet Count Result 285 k/mm3 (150-375); Red Blood Count 4.69 M/mm3 (4.2-5.4); Red Cell Distribution Width 14.8 % (11.5-14.5); White Blood Count 7.3 K/mm3 (4.5-10.0)
== END 2024-11-28 13:45 | disposition home or self-care (01) ==
PROVIDERS: PCP Internal Medicine; Visit Provider Nurse Practitioner
DX: K62.5 Hemorrhage of anus and rectum (principal)
CPT/HCPCS: 36415; 85027

== ENCOUNTER 2024-12-16 15:02 | Inpatient (IN) | payer MEDICARE, SELFPAY ==
[2024-12-16] VITALS (27 sets, daily range): BP systolic 142–165; BP diastolic 75–98; PULSE 79–111; RESP 12–20; TEMP 36.4–36.5; O2SAT 90–99; BMI 47.5
--- OUTSIDE RECORDS SUMMARY | 2024-12-16 15:04 | XMS_ITS | Referral Summary ---
Author Organization 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 Gender Identity Not on file Sexual Orientation Not on file Last Filed Vital Signs Vital Sign Reading Time Taken Comments Blood Pressure - - Pulse - - Temperature - - Respiratory Rate - - Oxygen Saturation - - Inhaled Oxygen Concentration - - Weight 117.9 kg (260 lb) 03/02/2018 12:51 PM CDT Height 165.1 cm (5' 5) 03/02/2018 12:51 PM CDT Body Mass Index 43.27 03/02/2018 12:51 PM CDT Plan of Treatment Not on file Insurance [employer] Care Teams County Ordinary Relationship Specialty Start Date End Date Cash Bird MD [address] [place], [place] [id number] PCP - General 12/17/10
--- OUTSIDE RECORDS SUMMARY | 2024-12-16 15:04 | XMS_ITS | Continuity of Care Document ---
Author Organization [facility] Address [address] [facility] [address] [facility] [address] [place] [address] Phone Care Team Providers Care Bailiff Name Role Phone Gurrola OD, Humberto Unavailable Unavailable Procedures Procedure Date Eye Exam & Treatment Refraction Vision Svcs Frames Purchases Progressive Lens, Polycarb Anti-reflective Coating Tax - Medical Eye Exam & Treatment Refraction Advance Directives Directive Yes / No Effective Date File Name No Information Encounters Encounter Description Practice Location Reason(s) For Visit Diagnoses Date Provider Providers Copied on Encounter [facility], [address] [place] [address] [address], [place], [place], [id number], [place] tel:[phone] [facility] No Information May- 6-200 8 Gurrola OD Humberto. [address] [place] , [address], [place], [address], [place]. tel:[phone] [facility], [address] [place] [address] [address], [place], [place], [id number], [place] tel:[phone] [facility] No Information Mar-2 6-200 7 Optical Shop [facility] . [address] [facility] [facility] [address], [place], [place], [address], [place]. tel:[phone] Referring Provider: Humberto Gurrola OD A, [address], [place], [address]. tel:[phone] g Provider: Shira Mccarty, [address] [facility], [address]. tel:[phone] [facility] Eye [facility], [address], [place], [place], [id number], [place] tel:[phone] [facility] No Information Jan-0 2-200 7 Gurrola OD Humberto. [address], [place], [address], [place]. tel:[phone] Family History Family Member Type Diagnosis Age At Onset No Information Payers Payer name Insurance type Covered libertarian ID Daniela flores(s) [facility] CI [id number] Social History Type Description Quantity Date Captured [...]
--- OUTSIDE RECORDS SUMMARY | 2024-12-16 15:04 | XMS_ITS | Clinical Summary ---
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
--- NOTE | 2024-12-16 16:15 | ED.GIBLEED ---
HPI - GI Bleed General Chief complaint: GI Bleed Stated complaint: rectal bleeding Time Seen by Provider: 12/16/24 15:54 History of Present Illness HPI Narrative: Pt presents with bright red blood per rectum with clots today. Pt had GO appointment to get scoped but called today with bleeding and sent ot ER. Pt has some mild intermittent crampy lower abdominal pain. Related Data Home Medications ?Medication ?Instructions ?Recorded ?Confirmed ?Last Taken ?Type [id number] 4 mg-folic acid tablet PO 02/13/24 11/28/24 Unknown History 200 mcg-vit K 25 mcg-lutein tablet (Centrum Minis Women 50 Plus) acetaminophen 325 mg capsule 500 mg PO Q6H PRN 08/28/24 11/28/24 Unknown History (Tylenol) Allergies Allergy/AdvReac Type Severity Reaction Status Date / Time aspirin Allergy Mild throat Verified 12/16/24 16:03 swelling codeine Allergy Mild hallucinati Verified 12/16/24 16:03 ons meperidine Allergy Mild tachycardia Verified 12/16/24 16:03 NSAIDS (Non-Steroidal Allergy Mild throat Verified 12/16/24 16:03 Anti-Inflamma swelling Penicillins Allergy Mild rash Verified 12/16/24 16:03 Quinolones Allergy Mild HIVES Verified 12/16/24 16:03 vancomycin Allergy Mild HIVES Verified 12/16/24 16:03 red dye Allergy Unknown Hives Verified 12/16/24 16:03 Review of Systems Review of Systems: All systems reviewed & are unremarkable except as noted in HPI and below PMFSH Past Medical History Medical History Chronic pain of both knees URI, acute Lower leg edema Gastro-esophageal reflux disease without esophagitis Dorsalgia WEINER (dyspnea on exertion) Cough Atypical chest pain Annual physical exam Degenerative arthritis of knee, bilateral Severe medial compartment arthritis both knees Pure hypercholesterolemia Essential (primary) hypertension Surgical History Surgical History History of breast biopsy History of cholecystectomy History of nasal surgery History of hysterectomy Family History Family History Father Family history of diabetes mellitus in first degree relative, Onset Age: 72 Heart attack Lung cancer Arthritis Mother Hypertension Heart attack Arthritis Sibling Heart attack Other Cerebrovascular accident Diabetes mellitus Social History Social History Smoking status: Former smoker Second hand tobacco smoke exposure: No Smoking end date: 06/05/70 Alcohol intake: former Substance use: never Substance use type: does not use Do You Feel Safe in your Home?: Yes Lack of Transportation: No Lack of Food: Never True Current Housing: I Have Housing Concerned About Future Housing: No Difficulty Paying Gas/Electric Bills: No Difficulty Paying for Meds: No Currently Unemployed: No Education: Bachelor's Degree Difficulty w/ Childcare or Family Care: No Living arrangements: alone 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 Gender identity (if verbalized by the patient): Female Exam Const: General: healthy appearing and no acute distress Nutritional Appearance: well nourished Orientation/consciousness: patient oriented x3 Limitations: no limitations HENMT: Head: normal to inspection Mouth: Yes Normal oral and palatal mucosa present Eyes: Pupils: Equal, round and reactive pupils present EOM: EOMs intact bilaterally Resp: Effort & Inspection: normal respiratory effort Auscultation: clear to auscultation bilaterally Cardio: Rate: regular rate Rhythm: regular rhythm GI: GI Palp: Yes Soft to palpation and No Tenderness to palpation present (GI) Auscultation: normal bowel sounds Back/Spine/Pelvis: Back: no CVA tenderness Skin: General skin exam: normal color Rashes: no rashes Wounds: no wounds Neuro: General: patient oriented x3, moves all extremities, no meningeal signs and no focal motor deficits Speech: normal speech Extrem: General: edema bilateral Psych: Mental Status: mental status grossly normal Affect: normal affect Attitude: cooperative Course Vital Signs Vital signs: Vital Signs Temperature 97.6 F 12/16/24 15:09 Pulse Rate 111 H 12/16/24 15:09 Respiratory Rate 20 12/16/24 15:09 Blood Pressure 147/87 H 12/16/24 15:09 Pulse Oximetry 96 12/16/24 15:09 Oxygen Delivery Room Air 12/16/24 15:09 Temperature 97.7 F 12/16/24 15:54 Pulse Rate 88 12/16/24 20:40 Respiratory Rate 16 12/16/24 20:40 Blood Pressure 145/87 H 12/16/24 20:40 Pulse Oximetry 96 12/16/24 20:40 Oxygen Delivery Room Air 12/16/24 15:54 MDM - GI Bleed MDM Narrative Medical decision making narrative: Pt presents with bright red rectal bleeding with clots and low abdominal pain. Pt has seen Dr Burden's PRITESH but has not been scoped. VSS. Will get labs and type and screen. cbc ok and cmp ok. Discussed with Dr Burden and said is not communication and outreach manager so will call Dr Driscoll. Dr Luna will consult. discussed with Mayte Rosales and agrees to admit. Lab Data 12/16/24 18:43 12/16/24 16:06 Labs: Lab Results 12/16/24 Range/Units 16:06 WBC 7.7 (4.5-10.0) K/mm3 RBC 4.93 (4.2-5.4) M/mm3 Hgb 15.0 (12.0-15.0) g/dL Hct 46.3 (37.0-47.0) % MCV 93.9 (80-100) fl MCH 30.4 (26-34) pg MCHC 32.4 (32-36) g/dl RDW 14.5 (11.5-14.5) % Plt Count 291 (150-375) k/mm3 MPV 9.5 (7.4-10.4) fl Immature Gran % (Auto) 0.3 (0-0.5) % Neut % (Auto) 61.2 (45.5-73.1) % Lymph % (Auto) 28.3 (18.3-44.2) % Todd % (Auto) 7.9 (2.6-8.5) % Eos % (Auto) 1.3 (0-4.4) % Baso % (Auto) 1.0 (0.2-1.2) % Lymph # (Auto) 2.18 (0.9-3.2) K/mm3 Todd # (Auto) 0.6 (0.1-0.6) K/mm3 Eos # (Auto) 0.1 (0-0.3) K/mm3 Baso # (Auto) 0.1 (0.0-0.1) K/mm3 Abs Immat Gran (auto) 0.02 (0.00-0.031) K/mm3 Absolute Neuts (auto) 4.7 (1.3-6.7) K/mm3 Absolute Nucleated RBC 0.000 (0.0-0.012) K/mm3 Nucleated RBC % 0.0 (0.0-0.2) % PT 13.1 (11.1-14.7) Seconds INR 1.0 APTT 28.4 (22.3-36.8) Seconds Sodium 141 (137-145) mmol/L Potassium 3.9 (3.4-5.0) mmol/L Chloride 107 (98-107) mmol/L Carbon Dioxide 23 (22-30) mmol/L Anion Gap 11 (4-12) mmol/L BUN 21 H (7-17) mg/dL Creatinine 0.96 (0.7-1.0) mg/dL Estim Creat Clear Calc 62 ml/min Estimated GFR 57 L (59 - ) Glucose 122 H (65-110) mg/dL Calcium 8.8 (8.4-10.2) mg/dL Total Bilirubin 0.7 (0.2-1.3) mg/dL AST 21 (14-36) U/L ALT 34 (6-35) U/L Alkaline Phosphatase 151 H (38-126) U/L Total Protein 7.8 (6.3-8.2) g/dL Albumin 4.3 (3.5-5.1) g/dL Blood Type B Positive Antibody Screen Negative Discharge Plan Discharge Clinical Impression: GI (gastrointestinal bleed) Patient Disposition: Still a Patient Condition: Stable
[2024-12-16 16:19] LABS: Hematocrit 46.3 % (37.0-47.0); Hemoglobin 15.0 g/dL (12.0-15.0); Immature Granulocyte Percent A 0.3 % (0-0.5); Lymphocytes Absolute Auto 2.18 K/mm3 (0.9-3.2); Mean Corpuscular HGB Conc 32.4 g/dl (32-36); Mean Corpuscular Hemoglobin 30.4 pg (26-34); Mean Corpuscular Volume 93.9 fl (80-100); Nucleated Red Blood Cells Absolute Auto 0.000 K/mm3 (0.0-0.012); Nucleated Red Blood Cells Perc 0.0 % (0.0-0.2); Platelet Count Result 291 k/mm3 (150-375); Red Blood Count 4.93 M/mm3 (4.2-5.4); White Blood Count 7.7 K/mm3 (4.5-10.0)
[2024-12-16 16:33] LABS: Alanine Aminotransferase 34 U/L (6-35); Albumin Level 4.3 g/dL (3.5-5.1); Alkaline Phosphatase 151 U/L (38-126); Anion Gap 11 mmol/L (4-12); Aspartate Amino Transferase 21 U/L (14-36); Bilirubin,Total 0.7 mg/dL (0.2-1.3); Blood Urea Nitrogen 21 mg/dL (7-17); Calcium 8.8 mg/dL (8.4-10.2); Carbon Dioxide 23 mmol/L (22-30); Chloride 107 mmol/L (98-107); Estimated CRCL calculation 62 ml/min; Estimated Glomerular Filt Rate 57; Glucose 122 mg/dL (65-110); Potassium 3.9 mmol/L (3.4-5.0); Sodium 141 mmol/L (137-145); Total Protein 7.8 g/dL (6.3-8.2)
[2024-12-16 16:39] LABS: INR 1.0; Prothrombin Time 13.1 Seconds (11.1-14.7)
[2024-12-16 16:40] LABS: Partial Thromboplastin Time 28.4 Seconds (22.3-36.8)
--- OUTSIDE RECORDS SUMMARY | 2024-12-16 17:44 | XMS_ITS | Clinical Summary ---
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
--- OUTSIDE RECORDS SUMMARY | 2024-12-16 17:44 | XMS_ITS | Referral Summary ---
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
--- OUTSIDE RECORDS SUMMARY | 2024-12-16 17:44 | XMS_ITS | Continuity of Care Document ---
Author Organization [facility] Address [address] [place] [address] Phone Care Team Providers Care Silver Plater Name Role Phone Gurrola OD, Humberto Unavailable Unavailable Procedures Procedure Date Eye Exam & Treatment Refraction Vision Svcs Frames Purchases Progressive Lens, Polycarb Anti-reflective Coating Tax - Medical Eye Exam & Treatment Refraction Advance Directives Directive Yes / No Effective Date File Name No Information Encounters Encounter Description Practice Location Reason(s) For Visit Diagnoses Date Provider Providers Copied on Encounter [facility], [address] [place] [address] [address], [place], [place], [id number], [place] tel:[phone] [facility] No Information May- 6-200 8 Gurrola OD Humberto. [address] [place] , [address], [place], [address], [place]. tel:[phone] [facility], [address] [place] [address] [address], [place], [place], [id number], [place] tel:[phone] [facility] No Information Mar-2 6-200 7 [facility] . [address], [place], [place], [address], [place]. tel:[phone] Referring Provider: Humberto Gurrola OD A, [address], [place], [address]. tel:[phone] g Provider: Shira Mccarty, [address] [place], [address]. tel:[phone] [facility] Eye [facility], [address], [place], [place], [address], [place] tel:[phone] [facility] No Information Jan-0 2-200 7 Gurrola OD Humberto. [address], [address], [place], [address], [place]. tel:[phone] Family History Family Member Type Diagnosis Age At Onset No Information Payers Payer name Insurance type Covered green party ID Daniela flores(s) [facility] CI [id number] Social History Type Description Quantity Date Captured [...]
[2024-12-16 18:48] LABS: Hematocrit 44.2 % (37.0-47.0); Hemoglobin 14.2 g/dL (12.0-15.0)
[2024-12-16] MEDS: ACETAMINOPHEN 500 MG TABLET 1000 MG PO (20:22)
--- NOTE | 2024-12-16 21:20 | ADMGEN ---
This patient, Amanda Hummel, was admitted to 2 Medical Room 258-01. Patient/family oriented to hospital policies and general routines including ID bracelet, bed and alarms, visiting hours, pain management, procedures, bathroom and other care routines, personal items, smoking policy, room service/diet, and visiting hours. Information on how to activate the Rapid Response Team has been discussed. Patient/Family are encouraged to report perceived risks to care and to ask questions if they do not understand what they are told or what they should do.
--- NOTE | 2024-12-16 23:21 | P.HP_ITS ---
H&P: HPI History of Present Illness Date/Time: 12/16/24 23:21 Chief Complaint: Blood per rectum Narrative: This is a pleasant 73-year-old female with a history of GERD, adenomatous colon polyps (colonoscopy in 2016), degenerative disc disease, hyperlipidemia, hypertension, hysterectomy, cholecystectomy. She presents to [facility] on 12/15/2024 with a complaint of bright red blood per rectum worse than the last month. She is established with [facility], last saw them in the office on 11/28. For about a month now she has had bright red blood in her stool however minimal amounts. On the day of admission it was worse since she was passing large clots. She denies any blood thinners, aspirin use, tobacco, alcohol, illicit drug use. Prior to this she has had normal bowel movements every day. She reports some aching in a bandlike fashion across the abdominal area the level of the belly button. But no nausea or vomiting or diarrhea. No fever. Patient was scheduled for endoscopy on the day of admission. From the ER gastroenterology was consulted and they advised inpatient admission. Hemodynamically stable. Hemoglobin stable at 15 and 14.2. Patient rest comfortably in bed. Review of Systems Review of Systems: All systems reviewed & are unremarkable except as noted in HPI and below (HPI) [facility] Past Medical History Medical History Chronic pain of both knees URI, acute Lower leg edema Gastro-esophageal reflux disease without esophagitis Dorsalgia WEINER (dyspnea on exertion) Cough Atypical chest pain Annual physical exam Degenerative arthritis of knee, bilateral Severe medial compartment arthritis both knees Pure hypercholesterolemia Essential (primary) hypertension Surgical History Surgical History History of breast biopsy History of cholecystectomy History of nasal surgery History of hysterectomy Family History Family History Father Family history of diabetes mellitus in first degree relative, Onset Age: 72 Heart attack Lung cancer Arthritis Mother Hypertension Heart attack Arthritis Sibling Heart attack Other Cerebrovascular accident Diabetes mellitus Social History Social History Smoking status: Never smoker Second hand tobacco smoke exposure: No Smoking end date: 06/05/70 Alcohol intake: never Substance use: never Substance use type: does not use Do You Feel Safe in your Home?: Yes Lack of Transportation: No Lack of Food: Never True Current Housing: I Have Housing Concerned About Future Housing: No Difficulty Paying Gas/Electric Bills: No Difficulty Paying for Meds: No Currently Unemployed: No Education: Bachelor's Degree Difficulty w/ Childcare or Family Care: No Living arrangements: alone 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 Gender identity (if verbalized by the patient): Female Spiritual care concerns: No Meds Home Medications and Allergies Home Medications ?Medication ?Instructions ?Recorded ?Confirmed ?Type [id number] 4 mg-folic acid 1 tablet PO DAILY 02/13/24 12/16/24 History 200 mcg-vit K 25 mcg-lutein tablet (Centrum Minis Women 50 Plus) diltiazem HCl 180 mg capsule,24 180 mg PO DAILY #90 caps 03/07/24 12/16/24 Rx hr,extended release acetaminophen 325 mg capsule 500 mg PO Q6H PRN fever or pain 08/28/24 12/16/24 History (Tylenol) omeprazole 20 mg capsule,delayed See Rx Instructions .Route 11/22/24 12/16/24 Rx release .COMPLEX #90 caps Allergies Allergy/AdvReac Type Severity Reaction Status Date / Time aspirin Allergy Mild throat Verified 12/16/24 16:03 swelling codeine Allergy Mild hallucinati Verified 12/16/24 16:03 ons meperidine Allergy Mild tachycardia Verified 12/16/24 16:03 NSAIDS (Non-Steroidal Allergy Mild throat Verified 12/16/24 16:03 Anti-Inflamma swelling Penicillins Allergy Mild rash Verified 12/16/24 16:03 Quinolones Allergy Mild HIVES Verified 12/16/24 16:03 vancomycin Allergy Mild HIVES Verified 12/16/24 16:03 red dye Allergy Unknown Hives Verified 12/16/24 16:03 Vital Signs Vital Signs - 24 hr 12/16/24 15:09 12/16/24 15:54 12/16/24 15:54 Temperature 97.6 F 97.7 F 97.7 F Pulse Rate 111 H 94 94 Respiratory Rate 20 15 13 Blood Pressure 147/87 H 151/93 H 148/82 H Pulse Oximetry 96 97 97 Oxygen Delivery Room Air Room Air Fraction of Inspired Oxygen 12/16/24 15:59 12/16/24 16:00 12/16/24 16:02 Temperature Pulse Rate 89 92 91 Respiratory Rate 18 14 18 Blood Pressure 148/82 H Pulse Oximetry 96 96 96 Oxygen Delivery Fraction of Inspired Oxygen 12/16/24 16:26 12/16/24 16:30 12/16/24 16:32 Temperature Pulse Rate 80 83 83 Respiratory Rate 13 14 18 Blood Pressure 142/78 H Pulse Oximetry 96 93 94 Oxygen Delivery Fraction of Inspired Oxygen 12/16/24 17:10 12/16/24 17:15 12/16/24 17:44 Temperature Pulse Rate 83 79 85 Respiratory Rate 17 17 19 Blood Pressure 165/90 H Pulse Oximetry 90 97 99 Oxygen Delivery Fraction of Inspired Oxygen 12/16/24 17:52 12/16/24 17:53 12/16/24 17:54 Temperature Pulse Rate 95 97 107 H Respiratory Rate 13 16 20 Blood Pressure 154/88 H 160/98 H Pulse Oximetry 90 96 98 Oxygen Delivery Fraction of Inspired Oxygen 12/16/24 18:00 12/16/24 18:09 12/16/24 18:10 Temperature Pulse Rate 86 90 100 Respiratory Rate 18 Blood Pressure 158/87 H 154/88 H Pulse Oximetry 96 Oxygen Delivery Fraction of Inspired Oxygen 12/16/24 18:10 12/16/24 18:20 12/16/24 18:39 Temperature Pulse Rate 98 85 88 Respiratory Rate 12 16 Blood Pressure 160/98 H 145/87 H Pulse Oximetry 97 Oxygen Delivery Fraction of Inspired Oxygen 12/16/24 18:44 12/16/24 18:45 12/16/24 19:00 Temperature Pulse Rate 85 85 82 Respiratory Rate 13 18 13 Blood Pressure Pulse Oximetry 97 Oxygen Delivery Fraction of Inspired Oxygen 12/16/24 19:15 12/16/24 20:40 12/16/24 21:11 Temperature Pulse Rate 88 88 87 Respiratory Rate 16 16 Blood Pressure 145/87 H Pulse Oximetry 96 96 Oxygen Delivery Fraction of Inspired Oxygen 12/16/24 21:21 12/16/24 21:29 12/16/24 21:56 Temperature 97.7 F Pulse Rate 80 Respiratory Rate 20 Blood Pressure 142/75 H Pulse Oximetry 95 95 Oxygen Delivery Room Air Room Air Fraction of Inspired Oxygen 21 Exam Const: General: comfortable and no acute distress Other: A&O x3 HENMT: Mouth: Yes moist mucous membranes Eyes: Pupils: Equal, round and reactive pupils present Neck: Neck: supple Resp: Effort & Inspection: normal respiratory effort Auscultation: clear to auscultation bilaterally Cardio: Rate: regular rate Rhythm: regular rhythm GI: Inspection: non-distended GI Palp: Yes Soft to palpation and No Tenderness to palpation present (GI) Auscultation: normal bowel sounds (Hypoactive bowel sounds) Other: Large abdominal pannus. Rectal exam includes good anal sphincter tone with good puborectalis reflex. Copious external anal tags. No blood in the rectal vault. Scant brown stool. Neuro: Motor exam (neuro): 5/5 motor strength present throughout Extrem: General: no edema H&P: Results Labs Labs: Short CBC 12/16/24 12/16/24 Range/Units 16:06 18:43 WBC 7.7 (4.5-10.0) K/mm3 Hgb 15.0 14.2 (12.0-15.0) g/dL Hct 46.3 44.2 (37.0-47.0) % Plt Count 291 (150-375) k/mm3 BMP 12/16/24 16:06 Sodium 141 Potassium 3.9 Chloride 107 Carbon Dioxide 23 BUN 21 H Creatinine 0.96 Glucose 122 H Calcium 8.8 Liver Function 12/16/24 Range/Units 16:06 Total Bilirubin 0.7 (0.2-1.3) mg/dL AST 21 (14-36) U/L ALT 34 (6-35) U/L Alkaline Phosphatase 151 H (38-126) U/L Albumin 4.3 (3.5-5.1) g/dL Assessment and Plan Assessment and plan (1) Essential hypertension: Code(s): I10 - Essential (primary) hypertension Status: Acute (2) Obesity: Code(s): E66.9 - Obesity, unspecified Status: Acute (3) Esophageal reflux disease: Code(s): K21.9 - Gastro-esophageal reflux disease without esophagitis Status: Acute (4) Hematochezia: Code(s): K92.1 - Melena Status: Acute (5) GI (gastrointestinal bleed): Code(s): K92.2 - Gastrointestinal hemorrhage, unspecified Status: Acute Plan This is a pleasant 73-year-old female with a history of GERD, adenomatous colon polyps (colonoscopy in 2016), degenerative disc disease, hyperlipidemia, hypertension, hysterectomy, cholecystectomy. She presents to [facility] ER on 12/15/2024 with a complaint of bright red blood per rectum worse than the last month. She is established with [facility], last saw them in the office on 11/28. For about a month now she has had bright red blood in her stool however minimal amounts. On the day of admission it was worse since she was passing large clots. She denies any blood thinners, aspirin use, tobacco, alcohol, illicit drug use. Prior to this she has had normal bowel movements every day. She reports some aching in a bandlike fashion across the abdominal area the level of the belly button. But no nausea or vomiting or diarrhea. No fever. Patient was scheduled for endoscopy on the day of admission. From the ER gastroenterology was consulted and they advised inpatient admission. Hemodynamically stable. Hemoglobin stable at 15 and 14.2. Patient rest comfortably in bed. ----- Pending official GI consultation. Cycle hemoglobin. Protonix 40 mg IV q.a.m. Patient is stable. Admit to medical-surgical floor on 12/16/2024. She wishes to be full code. SCDs. Hospitalist [facility] Advance Care Plan I have confirmed that the patient's Advanced Care Plan is present, code status is documented, or surrogate decision maker is listed in patient medical record.: Yes Medication Reconciliation I have utilized all available resources to obtain, update and review the patients current medications (includes all prescriptions, OTC, herbals, cannabis, and nutritional supplements).: Yes
[2024-12-17] VITALS (8 sets, daily range): BP systolic 134–147; BP diastolic 75–86; PULSE 70–84; RESP 14–20; TEMP 36.1–36.6; O2SAT 94–98
[2024-12-17] MEDS: ACETAMINOPHEN 500 MG TABLET 1000 MG PO (04:38)
[2024-12-17 05:24] LABS: Hematocrit 43.4 % (37.0-47.0); Hemoglobin 13.9 g/dL (12.0-15.0); Mean Corpuscular HGB Conc 32.0 g/dl (32-36); Mean Corpuscular Hemoglobin 30.5 pg (26-34); Mean Corpuscular Volume 95.4 fl (80-100); Platelet Count Result 265 k/mm3 (150-375); Red Blood Count 4.55 M/mm3 (4.2-5.4); White Blood Count 7.4 K/mm3 (4.5-10.0)
[2024-12-17 05:46] LABS: Alanine Aminotransferase 28 U/L (6-35); Albumin Level 3.5 g/dL (3.5-5.1); Alkaline Phosphatase 110 U/L (38-126); Anion Gap 6 mmol/L (4-12); Aspartate Amino Transferase 19 U/L (14-36); Bilirubin,Total 0.7 mg/dL (0.2-1.3); Blood Urea Nitrogen 19 mg/dL (7-17); Calcium 8.3 mg/dL (8.4-10.2); Carbon Dioxide 24 mmol/L (22-30); Chloride 108 mmol/L (98-107); Estimated CRCL calculation 69 ml/min; Estimated Glomerular Filt Rate > 60; Glucose 108 mg/dL (65-110); Magnesium 2.2 mg/dL (1.6-2.3); Potassium 3.6 mmol/L (3.4-5.0); Sodium 138 mmol/L (137-145); Total Protein 6.4 g/dL (6.3-8.2)
--- NOTE | 2024-12-17 08:29 | WPDGICN ---
Assessment and Plan Assessment and plan (1) Hematochezia: Code(s): K92.1 - Melena Status: Acute (2) Esophageal reflux disease: Qualifiers: Esophagitis presence: esophagitis presence not specified Qualified Code(s): K21.9 - Gastro-esophageal reflux disease without esophagitis Code(s): K21.9 - Gastro-esophageal reflux disease without esophagitis Status: Acute (3) Nausea: Code(s): R11.0 - Nausea Status: Acute (4) Epigastric pain: Code(s): R10.13 - Epigastric pain Status: Acute Plan 1. Hematochezia: Last colonoscopy 10/06/2015 at which time she had a tubular adenomatous colon polyp removed and was advised to have a repeat in 5 years (2020). No recent GI imaging this admission. CT scan in August of 2023 showed diverticulosis without evidence of diverticulitis but no other findings to explain rectal bleeding. BMP, CBC, LFTs are normal. INR 1.0. Last seen in GI office 11/28/2024 with TE Agrawal and was scheduled for a colonoscopy and EGD. Patient states she has been having daily episodes of trace rectal bleeding for over a month but prior to her ER visit the bleeding had increased in amount and also contain large blood clots. She admits to rectal irritation recently following bowel movements. Denies any bleeding since admission stating that this morning she had a brown formed non urgent bowel movement. Iron panel and ferritin ordered given duration of bleeding normal CBC Colonoscopy tomorrow with Dr. Gu NPO after midnight Clear liquids today prep to start this evening. Patient is unable to do full prep with mag citrate and Dulcolax due to red dye allergy. Please notify MD if additional prep is needed if patient is not clear with Miralax prep 2. GERD/nausea/epigastric pain: Prior to admission patient on omeprazole 20 mg daily. Patient has never had an EGD. Longstanding history of reflux and has been taking omeprazole for many years. Previous attempts to discontinue PPI were unsuccessful. During last office visit on 11/28/2024 an EGD was ordered. Continue PPI EGD ordered Thank you very much for allowing me to share in the care of this very nice patient. This report may have been done utilizing a voice recognition system. Attempts have been made to correct errors. However, there may be uncorrected grammatical, spelling, and recognition errors present. GI Consult Note Consult date/time: 12/17/24 08:29 Reason for consult: GI bleed HPI: Amanda Hummel is a 73 year old female with PMSH of GERD, adenomatous colon polyps, degenerative disc disease, hyperlipidemia, hypertension, hysterectomy and cholecystectomy. Patient presented to emergency room yesterday with complaints of rectal bleeding. GI has been consulted for GI bleed. Patient was last seen in the GI office by TE Agrawal on 11/28/2024 at which time she also had complaints of rectal bleeding and reflux and was scheduled for an EGD and colonoscopy. Patient states that she has been experiencing daily episodes of trace rectal bleeding for more than a month but prior to her admission she was having a larger amount of blood noted in her stool along with large clots. She also complains of rectal irritation following bowel movements. She denies any further bleeding since admission stating that she had a bowel movement this morning that was brown, formed, and non Urgent. Patient complains of mild crampy midline abdominal pain that is intermittent in nature and has no correlation with bowel movements. She has also been experiencing intermittent episodes of epigastric pain and nausea. Prior to her admission she had self increased her omeprazole from 20 mg daily to 40 mg daily and states that after this medication change her bleeding improved. She denies any vomiting, bloating, odynophagia, dysphagia, reflux, regurgitation, early satiety, appetite or weight loss. Denies diarrhea, constipation, or melena. She denies any NSAID, aspirin, or anticoagulant use. She is a nondrinker nonsmoker and denies any marijuana use. Family history negative for CRC or IBD. ENDOSCOPY HISTORY: EGD: No prior EGD COLONOSCOPY: 10/06/2015 (Dr. Villalba) for family history of colorectal cancer Findings: 5 mm sessile polyp in the mid ascending colon that was excised and diverticula in the sigmoid colon. Recommendation was for repeat in 5 years, but patient reports being told subsequently that she did not need further colonoscopies unless she developed symptoms. Bx Results: Colon polyp is adenomatous. COLONOSCOPY: 2009 (Dr. Villalba) LABS AND STOOL STUDIES: Labs 12/17/2024: Sodium 138, potassium 3.6, BUN 19, creatinine 0.83, GFR >60, calcium 8.3 WBC 7, Hgb 14, Hct 43, MCV 95, platelets 265, INR 1.0 Total bilirubin 0.7, AST 19, ALT 28, Alkaline Phos 110, albumin 3.5 IMAGING: CT abd/pelvis w/contrast 08/24/2023: FINDINGS: Minimal dependent atelectasis is present in the lung bases. The heart size is normal. There is a small sliding hiatal hernia. Chronic areas of low attenuation in the liver likely reflect focal fatty infiltration. Changes of cholecystectomy are noted. Punctate calcifications in an otherwise normal spleen likely represent healed granulomatous disease. The pancreas and adrenal glands are normal. Cysts of the kidneys measure up to 1.3 cm on the right. No pathologically enlarged abdominal or pelvic lymph nodes are identified. No free intraperitoneal gas or evidence of bowel obstruction. Colonic diverticulosis is present without evidence of diverticulitis. There are changes of mesh ventral hernia repair. There is moderate lumbar spondylosis. IMPRESSION: 1. No CT correlate for the patient's symptoms. Review of Systems Constitutional: Constitutional: Reports as per HPI ENT: Reports as per HPI Cardiovascular: Cardiovascular: Reports as per HPI, Denies chest pain and Denies dyspnea Respiratory: Respiratory: Denies cough and Denies dyspnea Gastrointestinal: Gastrointestinal: Reports as per HPI Musculoskeletal: Musculoskeletal: Reports as per HPI Integumentary/Breasts: Skin/Breast: Reports as per HPI Psychiatric: Psychiatric: Reports as per HPI Endocrine: Endocrine: Reports no additional endocrine complaints Hematologic/Lymphatic: Hematologic/Lymphatic: Reports no additional hematologic/lymphatic complaints [facility] Past Medical History Medical History Chronic pain of both knees URI, acute Lower leg edema Gastro-esophageal reflux disease without esophagitis Dorsalgia WEINER (dyspnea on exertion) Cough Atypical chest pain Annual physical exam Degenerative arthritis of knee, bilateral Severe medial compartment arthritis both knees Pure hypercholesterolemia Essential (primary) hypertension Surgical History Surgical History History of breast biopsy History of cholecystectomy History of nasal surgery History of hysterectomy Family History Family History Father Family history of diabetes mellitus in first degree relative, Onset Age: 72 Heart attack Lung cancer Arthritis Mother Hypertension Heart attack Arthritis Sibling Heart attack Other Cerebrovascular accident Diabetes mellitus Social History Social History Smoking status: Never smoker Second hand tobacco smoke exposure: No Smoking end date: 06/05/70 Alcohol intake: never Substance use: never Substance use type: does not use Do You Feel Safe in your Home?: Yes Lack of Transportation: No Lack of Food: Never True Current Housing: I Have Housing Concerned About Future Housing: No Difficulty Paying Gas/Electric Bills: No Difficulty Paying for Meds: No Currently Unemployed: No Education: Bachelor's Degree Difficulty w/ Childcare or Family Care: No Living arrangements: alone 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 Gender identity (if verbalized by the patient): Female Spiritual care concerns: No Meds Home Medications and Allergies Home Medications ?Medication ?Instructions ?Recorded ?Confirmed ?Type [id number] 4 mg-folic acid 1 tablet PO DAILY 02/13/24 12/16/24 History 200 mcg-vit K 25 mcg-lutein tablet (Centrum Minis Women 50 Plus) diltiazem HCl 180 mg capsule,24 180 mg PO DAILY #90 caps 03/07/24 12/16/24 Rx hr,extended release acetaminophen 325 mg capsule 500 mg PO Q6H PRN fever or pain 08/28/24 12/16/24 History (Tylenol) omeprazole 20 mg capsule,delayed See Rx Instructions .Route 11/22/24 12/16/24 Rx release .COMPLEX #90 caps Allergies Allergy/AdvReac Type Severity Reaction Status Date / Time aspirin Allergy Mild throat Verified 12/16/24 16:03 swelling codeine Allergy Mild hallucinati Verified 12/16/24 16:03 ons meperidine Allergy Mild tachycardia Verified 12/16/24 16:03 NSAIDS (Non-Steroidal Allergy Mild throat Verified 12/16/24 16:03 Anti-Inflamma swelling Penicillins Allergy Mild rash Verified 12/16/24 16:03 Quinolones Allergy Mild HIVES Verified 12/16/24 16:03 vancomycin Allergy Mild HIVES Verified 12/16/24 16:03 red dye Allergy Unknown Hives Verified 12/16/24 16:03 Vital Signs Vital Signs - 24 hr 12/16/24 15:09 12/16/24 15:54 12/16/24 15:54 Temperature 97.6 F 97.7 F 97.7 F Pulse Rate 111 H 94 94 Respiratory Rate 20 15 13 Blood Pressure 147/87 H 151/93 H 148/82 H Pulse Oximetry 96 97 97 Oxygen Delivery Room Air Room Air Fraction of Inspired Oxygen 12/16/24 15:59 12/16/24 16:00 12/16/24 16:02 Temperature Pulse Rate 89 92 91 Respiratory Rate 18 14 18 Blood Pressure 148/82 H Pulse Oximetry 96 96 96 Oxygen Delivery Fraction of Inspired Oxygen 12/16/24 16:26 12/16/24 16:30 12/16/24 16:32 Temperature Pulse Rate 80 83 83 Respiratory Rate 13 14 18 Blood Pressure 142/78 H Pulse Oximetry 96 93 94 Oxygen Delivery Fraction of Inspired Oxygen 12/16/24 17:10 12/16/24 17:15 12/16/24 17:44 Temperature Pulse Rate 83 79 85 Respiratory Rate 17 17 19 Blood Pressure 165/90 H Pulse Oximetry 90 97 99 Oxygen Delivery Fraction of Inspired Oxygen 12/16/24 17:52 12/16/24 17:53 12/16/24 17:54 Temperature Pulse Rate 95 97 107 H Respiratory Rate 13 16 20 Blood Pressure 154/88 H 160/98 H Pulse Oximetry 90 96 98 Oxygen Delivery Fraction of Inspired Oxygen 12/16/24 18:00 12/16/24 18:09 12/16/24 18:10 Temperature Pulse Rate 86 90 100 Respiratory Rate 18 Blood Pressure 158/87 H 154/88 H Pulse Oximetry 96 Oxygen Delivery Fraction of Inspired Oxygen 12/16/24 18:10 12/16/24 18:20 12/16/24 18:39 Temperature Pulse Rate 98 85 88 Respiratory Rate 12 16 Blood Pressure 160/98 H 145/87 H Pulse Oximetry 97 Oxygen Delivery Fraction of Inspired Oxygen 12/16/24 18:44 12/16/24 18:45 12/16/24 19:00 Temperature Pulse Rate 85 85 82 Respiratory Rate 13 18 13 Blood Pressure Pulse Oximetry 97 Oxygen Delivery Fraction of Inspired Oxygen 12/16/24 19:15 12/16/24 20:40 12/16/24 21:11 Temperature Pulse Rate 88 88 87 Respiratory Rate 16 16 Blood Pressure 145/87 H Pulse Oximetry 96 96 Oxygen Delivery Fraction of Inspired Oxygen 12/16/24 21:21 12/16/24 21:29 12/16/24 21:56 Temperature 97.7 F Pulse Rate 80 Respiratory Rate 20 Blood Pressure 142/75 H Pulse Oximetry 95 95 Oxygen Delivery Room Air Room Air Fraction of Inspired Oxygen 21 12/17/24 00:00 12/17/24 04:00 12/17/24 05:02 Temperature 97 F L Pulse Rate 70 70 81 Respiratory Rate 20 Blood Pressure 134/75 Pulse Oximetry 94 Oxygen Delivery Fraction of Inspired Oxygen 12/17/24 07:44 Temperature Pulse Rate Respiratory Rate Blood Pressure Pulse Oximetry 94 Oxygen Delivery Room Air Fraction of Inspired Oxygen 21 Exam Const: General: cooperative, healthy appearing, comfortable, no acute distress and well developed Orientation/consciousness: oriented to person, oriented to place, oriented to time and patient oriented x3 HENMT: Head: normal to inspection, normocephalic and atraumatic Mouth: Yes Normal oral and palatal mucosa present and Yes moist mucous membranes Eyes: General: appearance normal, both eyes and all related structures Conjunctivae: conjunctivae normal Sclera: sclerae normal Pupils: Equal, round and reactive pupils present Neck: Neck: normal visual inspection Chest: Chest palpation & inspection: normal inspection of the chest Resp: Effort & Inspection: normal respiratory effort and able to speak in complete sentences Auscultation: clear to auscultation bilaterally Cardio: Jugular venous distension: no JVD Rate: regular rate Rhythm: regular rhythm Heart sounds: S1 normal heart sound present and S2 normal heart sound present GI: Inspection: normal to inspection GI Palp: Yes Soft to palpation and Yes No hepatosplenomegaly present Auscultation: normal bowel sounds Rectal Exam: deferred Skin: General skin exam: normal color and no rashes or lesions noted Neuro: General: oriented to person, oriented to place, oriented to time and patient oriented x3 Cranial nerves: Yes Equal, round and reactive pupils present Speech: normal speech Extrem: General: normal to inspection and no clubbing, cyanosis or edema Psych: Appearance: grossly normal and well kempt Affect: normal affect Results Labs 12/17/24 04:38 12/17/24 04:38 Labs: Short CBC 12/16/24 12/16/24 12/17/24 Range/Units 16:06 18:43 04:38 WBC 7.7 7.4 (4.5-10.0) K/mm3 Hgb 15.0 14.2 13.9 (12.0-15.0) g/dL Hct 46.3 44.2 43.4 (37.0-47.0) % Plt Count 291 265 (150-375) k/mm3 BMP 12/16/24 12/17/24 16:06 04:38 Sodium 141 138 Potassium 3.9 3.6 Chloride 107 108 H Carbon Dioxide 23 24 BUN 21 H 19 H Creatinine 0.96 0.83 Glucose 122 H 108 Calcium 8.8 8.3 L Liver Function 12/16/24 12/17/24 Range/Units 16:06 04:38 Total Bilirubin 0.7 0.7 (0.2-1.3) mg/dL AST 21 19 (14-36) U/L ALT 34 28 (6-35) U/L Alkaline Phosphatase 151 H 110 (38-126) U/L Albumin 4.3 3.5 (3.5-5.1) g/dL
[2024-12-17] MEDS: PANTOPRAZOLE SODIUM IV 40 MG VIAL IV PUSH (09:02)
[2024-12-17 09:26] LABS: Iron 94 ug/dL (37-170)
[2024-12-17 09:37] LABS: Percent Iron Saturation 32 % (20-50)
[2024-12-17 10:07] LABS: Ferritin 61.00 ng/mL (11.1-264)
--- NOTE | 2024-12-17 12:21 | P.PNIM_ITS ---
Progress Note: A&P Assessment and Plan (1) Essential hypertension: Code(s): I10 - Essential (primary) hypertension Status: Acute (2) Obesity: Code(s): E66.9 - Obesity, unspecified Status: Acute (3) Esophageal reflux disease: Qualifiers: Esophagitis presence: esophagitis presence not specified Qualified Code(s): K21.9 - Gastro-esophageal reflux disease without esophagitis Code(s): K21.9 - Gastro-esophageal reflux disease without esophagitis Status: Acute (4) Hematochezia: Code(s): K92.1 - Melena Status: Acute (5) GI (gastrointestinal bleed): Code(s): K92.2 - Gastrointestinal hemorrhage, unspecified Status: Acute Plan This is a pleasant 73-year-old female with a history of GERD, adenomatous colon polyps (colonoscopy in 2015), degenerative disc disease, hyp erlipidemia, hypertension, hysterectomy, cholecystectomy. She presents to [facility] on 12/15/2024 with a complaint of bright red blood per rectum worse than the last month. She is established with [facility], last saw them in the office on 11/28. For about a month now she has had bright red blood in her stool however minimal amounts. On the day of admission it was worse since she was passing large clots. She denies any blood thinners, aspirin use, tobacco, alcohol, illicit drug use. Prior to this she has had normal bowel movements every day. She reports some aching in a bandlike fashion across the abdominal area the level of the belly button. But no nausea or vomiting or diarrhea. No fever. Patient was scheduled for endoscopy on the day of admission. From the ER gastroenterology was consulted and they advised inpatient admission. Hemodynamically stable. Hemoglobin stable. Patient rest comfortably in bed. GI consulted here inpatient. Protonix 40 mg daily. EGD and colonoscopy scheduled for tomorrow. Code status full code DVT prophylaxis SCDs Hypertension Hyperlipidemia History of GERD History of adenomatous colon polyps. Subjective Date/time seen: 12/17/24 12:21 Interval history: No overnight events. No further rectal bleeding. Does report periumbilical pain. No shortness of breath or chest pain. Review of Systems Review of Systems: All systems reviewed & are unremarkable except as noted in HPI and below (HPI) Exam Narrative: GENERAL: The patient is well developed, not in acute distress HEENT: Nonicteric sclerae, PERRLA, EOMI. Oropharynx clear. Moist mucous membranes. Conjunctivae appear well perfused. CHEST: Chest wall is nontender. HEART: Regular rate and rhythm without murmur, rubs, or gallops LUNGS: Clear to auscultation bilaterally. no respiratory distress ABDOMEN: Soft, positive bowel sounds, non-tender, no organomegaly. SKIN: No rash, no excessive bruising, petechiae, or purpura. NEUROLOGIC: Cranial nerves II-XII intact, alert and oriented x 3, no gross motor deficits EXTREMITIES: no edema, cyanosis or clubbing Objective Data Vital Signs Vital Signs: Vital Signs - 24 hr 12/16/24 15:09 12/16/24 15:54 12/16/24 15:54 Temperature 97.6 F 97.7 F 97.7 F Pulse Rate 111 H 94 94 Respiratory Rate 20 15 13 Blood Pressure 147/87 H 151/93 H 148/82 H Pulse Oximetry 96 97 97 Oxygen Delivery Room Air Room Air Fraction of Inspired Oxygen 12/16/24 15:59 12/16/24 16:00 12/16/24 16:02 Temperature Pulse Rate 89 92 91 Respiratory Rate 18 14 18 Blood Pressure 148/82 H Pulse Oximetry 96 96 96 Oxygen Delivery Fraction of Inspired Oxygen 12/16/24 16:26 12/16/24 16:30 12/16/24 16:32 Temperature Pulse Rate 80 83 83 Respiratory Rate 13 14 18 Blood Pressure 142/78 H Pulse Oximetry 96 93 94 Oxygen Delivery Fraction of Inspired Oxygen 12/16/24 17:10 12/16/24 17:15 12/16/24 17:44 Temperature Pulse Rate 83 79 85 Respiratory Rate 17 17 19 Blood Pressure 165/90 H Pulse Oximetry 90 97 99 Oxygen Delivery Fraction of Inspired Oxygen 12/16/24 17:52 12/16/24 17:53 12/16/24 17:54 Temperature Pulse Rate 95 97 107 H Respiratory Rate 13 16 20 Blood Pressure 154/88 H 160/98 H Pulse Oximetry 90 96 98 Oxygen Delivery Fraction of Inspired Oxygen 12/16/24 18:00 12/16/24 18:09 12/16/24 18:10 Temperature Pulse Rate 86 90 100 Respiratory Rate 18 Blood Pressure 158/87 H 154/88 H Pulse Oximetry 96 Oxygen Delivery Fraction of Inspired Oxygen 12/16/24 18:10 12/16/24 18:20 12/16/24 18:39 Temperature Pulse Rate 98 85 88 Respiratory Rate 12 16 Blood Pressure 160/98 H 145/87 H Pulse Oximetry 97 Oxygen Delivery Fraction of Inspired Oxygen 12/16/24 18:44 12/16/24 18:45 12/16/24 19:00 Temperature Pulse Rate 85 85 82 Respiratory Rate 13 18 13 Blood Pressure Pulse Oximetry 97 Oxygen Delivery Fraction of Inspired Oxygen 12/16/24 19:15 12/16/24 20:40 12/16/24 21:11 Temperature Pulse Rate 88 88 87 Respiratory Rate 16 16 Blood Pressure 145/87 H Pulse Oximetry 96 96 Oxygen Delivery Fraction of Inspired Oxygen 12/16/24 21:21 12/16/24 21:29 12/16/24 21:56 Temperature 97.7 F Pulse Rate 80 Respiratory Rate 20 Blood Pressure 142/75 H Pulse Oximetry 95 95 Oxygen Delivery Room Air Room Air Fraction of Inspired Oxygen 21 12/17/24 00:00 12/17/24 04:00 12/17/24 05:02 Temperature 97 F L Pulse Rate 70 70 81 Respiratory Rate 20 Blood Pressure 134/75 Pulse Oximetry 94 Oxygen Delivery Fraction of Inspired Oxygen 12/17/24 07:44 12/17/24 09:05 12/17/24 09:05 Temperature Pulse Rate 79 Respiratory Rate Blood Pressure Pulse Oximetry 94 Oxygen Delivery Room Air Room Air Fraction of Inspired Oxygen 21 Intake/Output Intake/Output: Intake & Output 12/14/24 12/15/24 12/16/24 12/17/24 23:59 23:59 23:59 23:59 Intake Total 836 Output Total 900 Balance -64 Meds/Results Medications: Active Medications Generic Name Dose Route Start Last Admin Trade Name Freq PRN Reason Stop Dose Admin Acetaminophen 1,000 mg 12/17/24 01:21 12/17/24 04:38 Acetaminophen 500 Mg Tablet PO 1,000 mg Q6H PRN Administration Mild Pain (1-3) or Fever Pantoprazole Sodium 40 mg 12/17/24 09:00 12/17/24 09:02 Pantoprazole Sodium Iv 40 Mg Vial IV PUSH 40 mg QAM ESTIVEN Administration Labs Labs: Laboratory Results - last 24 hr 12/16/24 12/16/24 12/17/24 16:06 18:43 04:32 WBC 7.7 RBC 4.93 Hgb 15.0 14.2 Hct 46.3 44.2 MCV 93.9 MCH 30.4 MCHC 32.4 RDW 14.5 Plt Count 291 MPV 9.5 Immature Gran % (Auto) 0.3 Neut % (Auto) 61.2 Lymph % (Auto) 28.3 [place] % (Auto) 7.9 Eos % (Auto) 1.3 Baso % (Auto) 1.0 Lymph # (Auto) 2.18 [place] # (Auto) 0.6 Eos # (Auto) 0.1 Baso # (Auto) 0.1 Abs Immat Gran (auto) 0.02 Absolute Neuts (auto) 4.7 Absolute Nucleated RBC 0.000 Nucleated RBC % 0.0 PT 13.1 INR 1.0 APTT 28.4 Sodium 141 Potassium 3.9 Chloride 107 Carbon Dioxide 23 Anion Gap 11 BUN 21 H Creatinine 0.96 Estim Creat Clear Calc 62 Estimated GFR 57 L Glucose 122 H Calcium 8.8 Magnesium Iron 94 TIBC 290 % Saturation 32 Ferritin 61.00 Total Bilirubin 0.7 AST 21 ALT 34 Alkaline Phosphatase 151 H Total Protein 7.8 Albumin 4.3 Blood Type B Positive Antibody Screen Negative 12/17/24 04:38 WBC 7.4 RBC 4.55 Hgb 13.9 Hct 43.4 MCV 95.4 MCH 30.5 MCHC 32.0 RDW 14.6 H Plt Count 265 MPV 9.7 Immature Gran % (Auto) Neut % (Auto) Lymph % (Auto) Montgomery % (Auto) Eos % (Auto) Baso % (Auto) Lymph # (Auto) [place] # (Auto) Eos # (Auto) Baso # (Auto) Abs Immat Gran (auto) Absolute Neuts (auto) Absolute Nucleated RBC Nucleated RBC % PT INR APTT Sodium 138 Potassium 3.6 Chloride 108 H Carbon Dioxide 24 Anion Gap 6 BUN 19 H Creatinine 0.83 Estim Creat Clear Calc 69 Estimated GFR > 60 Glucose 108 Calcium 8.3 L Magnesium 2.2 Iron TIBC % Saturation Ferritin Total Bilirubin 0.7 AST 19 ALT 28 Alkaline Phosphatase 110 Total Protein 6.4 Albumin 3.5 Blood Type Antibody Screen
[2024-12-18 04:41] VITALS: BP 138/69; PULSE 86; RESP 20; TEMP 36.4; O2SAT 93
[2024-12-18 05:09] LABS: Alanine Aminotransferase 40 U/L (6-35); Albumin Level 3.8 g/dL (3.5-5.1); Alkaline Phosphatase 90 U/L (38-126); Anion Gap 7 mmol/L (4-12); Aspartate Amino Transferase 31 U/L (14-36); Bilirubin,Total 1.1 mg/dL (0.2-1.3); Blood Urea Nitrogen 12 mg/dL (7-17); Calcium 8.2 mg/dL (8.4-10.2); Carbon Dioxide 23 mmol/L (22-30); Chloride 107 mmol/L (98-107); Estimated CRCL calculation 73 ml/min; Estimated Glomerular Filt Rate > 60; Glucose 110 mg/dL (65-110); Magnesium 2.2 mg/dL (1.6-2.3); Potassium 4.0 mmol/L (3.4-5.0); Sodium 137 mmol/L (137-145); Total Protein 7.1 g/dL (6.3-8.2)
[2024-12-18 06:18] LABS: Hematocrit 43.5 % (37.0-47.0); Hemoglobin 14.0 g/dL (12.0-15.0); Immature Granulocyte Percent A 0.4 % (0-0.5); Lymphocytes Absolute Auto 2.35 K/mm3 (0.9-3.2); Mean Corpuscular HGB Conc 32.2 g/dl (32-36); Mean Corpuscular Hemoglobin 30.6 pg (26-34); Mean Corpuscular Volume 95.2 fl (80-100); Nucleated Red Blood Cells Absolute Auto 0.000 K/mm3 (0.0-0.012); Nucleated Red Blood Cells Perc 0.0 % (0.0-0.2); Platelet Count Result 268 k/mm3 (150-375); Red Blood Count 4.57 M/mm3 (4.2-5.4); White Blood Count 7.9 K/mm3 (4.5-10.0)
--- NOTE | 2024-12-18 08:00 | PM.IMPN ---
Progress Note: A&P Assessment and Plan (1) Essential hypertension: Code(s): I10 - Essential (primary) hypertension Status: Acute (2) Obesity: Code(s): E66.9 - Obesity, unspecified Status: Acute (3) Esophageal reflux disease: Qualifiers: Esophagitis presence: esophagitis presence not specified Qualified Code(s): K21.9 - Gastro-esophageal reflux disease without esophagitis Code(s): K21.9 - Gastro-esophageal reflux disease without esophagitis Status: Acute (4) Hematochezia: Code(s): K92.1 - Melena Status: Acute (5) GI (gastrointestinal bleed): Code(s): K92.2 - Gastrointestinal hemorrhage, unspecified Status: Acute Plan This is a pleasant 73-year-old female with a history of GERD, adenomatous colon polyps (colonoscopy in 2015), degenerative disc disease, hyperlipidemia, hypertension, hysterectomy, cholecystectomy. She presents to [facility] on 12/15/2024 with a complaint of bright red blood per rectum worse than the last month. She is established with [facility], last saw them in the office on 11/28. For about a month now she has had bright red blood in her stool however minimal amounts. On the day of admission it was worse since she was passing large clots. She denies any blood thinners, aspirin use, tobacco, alcohol, illicit drug use. Prior to this she has had normal bowel movements every day. She reports some aching in a bandlike fashion across the abdominal area the level of the belly button. But no nausea or vomiting or diarrhea. No fever. Patient was scheduled for endoscopy on the day of admission. From the ER gastroenterology was consulted and they advised inpatient admission. Hemodynamically stable. Hemoglobin stable. Patient rest comfortably in bed. GI consulted here inpatient. Protonix 40 mg daily. EGD and colonoscopy scheduled for today. If unrevealing may need CT abdomen to evaluate periumbilical pain Code status full code DVT prophylaxis SCDs Hypertension Hyperlipidemia History of GERD History of adenomatous colon polyps. Subjective Date/time seen: 12/18/24 08:00 Interval history: No overnight events. Ready for EGD and colonoscopy that is scheduled for today. Continues to complain of intermittent periumbilical pain. No more blood in stool Review of Systems Review of Systems: All systems reviewed & are unremarkable except as noted in HPI and below (HPI) Exam Narrative: GENERAL: The patient is well developed, not in acute distress HEENT: Nonicteric sclerae, PERRLA, EOMI. Oropharynx clear. Moist mucous membranes. Conjunctivae appear well perfused. CHEST: Chest wall is nontender. HEART: Regular rate and rhythm without murmur, rubs, or gallops LUNGS: Clear to auscultation bilaterally. no respiratory distress ABDOMEN: Soft, positive bowel sounds, non-tender, no organomegaly. SKIN: No rash, no excessive bruising, petechiae, or purpura. NEUROLOGIC: Cranial nerves II-XII intact, alert and oriented x 3, no gross motor deficits EXTREMITIES: no edema, cyanosis or clubbing Objective Data Vital Signs Vital Signs: Vital Signs - 24 hr 12/17/24 09:05 12/17/24 09:05 12/17/24 14:00 Temperature 97.1 F L Pulse Rate 79 82 Respiratory Rate 14 Blood Pressure 147/86 H Pulse Oximetry 97 Oxygen Delivery Room Air Fraction of Inspired Oxygen 12/17/24 20:11 12/17/24 20:24 12/18/24 04:41 Temperature 97.8 F 97.6 F Pulse Rate 84 84 86 Respiratory Rate 20 20 20 Blood Pressure 146/80 H 138/69 Pulse Oximetry 98 98 93 Oxygen Delivery Room Air Fraction of Inspired Oxygen 21 Intake/Output Intake/Output: Intake & Output 12/15/24 12/16/24 12/17/24 12/18/24 23:59 23:59 23:59 23:59 Intake Total 1796 0 Output Total 1600 600 Balance 196 -600 Meds/Results Medications: Active Medications Generic Name Dose Route Start Last Admin Trade Name Freq PRN Reason Stop Dose Admin Acetaminophen 500 mg 12/17/24 15:31 Acetaminophen 500 Mg Tablet PO Q6H PRN fever or pain Diltiazem HCl 180 mg 12/18/24 09:00 Diltiazem Hcl Cd 180 Mg Cap.24hr PO DAILY [facility] Multivitamins/Minerals 1 tab 12/18/24 09:00 Multivitamins /C Lutein (Centrum Silver) Tablet *Bkc PO QAM [facility] Pantoprazole Sodium 40 mg 12/17/24 09:00 12/17/24 09:02 Pantoprazole Sodium Iv 40 Mg Vial IV PUSH 40 mg QAM [facility] Administration Labs Labs: Laboratory Results - last 24 hr 12/17/24 12/18/24 12/18/24 04:32 04:30 06:12 WBC 7.9 RBC 4.57 Hgb 14.0 Hct 43.5 MCV 95.2 MCH 30.6 MCHC 32.2 RDW 14.4 Plt Count 268 MPV 9.3 Immature Gran % (Auto) 0.4 Neut % (Auto) 57.7 Lymph % (Auto) 29.9 [place] % (Auto) 9.3 H Eos % (Auto) 1.8 Baso % (Auto) 0.9 Lymph # (Auto) 2.35 [place] # (Auto) 0.7 H Eos # (Auto) 0.1 Baso # (Auto) 0.1 Abs Immat Gran (auto) 0.03 Absolute Neuts (auto) 4.5 Absolute Nucleated RBC 0.000 Nucleated RBC % 0.0 Sodium 137 Potassium 4.0 Chloride 107 Carbon Dioxide 23 Anion Gap 7 BUN 12 D Creatinine 0.77 Estim Creat Clear Calc 73 Estimated GFR > 60 Glucose 110 Calcium 8.2 L Magnesium 2.2 Iron 94 TIBC 290 % Saturation 32 Ferritin 61.00 Total Bilirubin 1.1 AST 31 ALT 40 H Alkaline Phosphatase 90 Total Protein 7.1 Albumin 3.8
[2024-12-18] MEDS: dilTIAZem HCL CD 180 MG CAP.24HR PO (09:18)
[2024-12-18] MEDS: PANTOPRAZOLE SODIUM IV 40 MG VIAL IV PUSH (09:18)
[2024-12-18 09:38] VITALS: BP 139/84; PULSE 88; RESP 20; TEMP 36.6; O2SAT 96
[2024-12-18] MEDS: LACTATED RINGERS 1,000 ML 150 ML IV CONT (09:41)
[2024-12-18] MEDS: SIMETHICONE ORAL SUSPENSION 20 MG/0.3 ML 30 ML BOTTLE 1.8 ML PO (09:46)
--- NOTE | 2024-12-18 10:10 | P.PNAN_ITS ---
Anes - Initial Pre Proc Eval Procedure: Operation Date: 12/18/24 14:45 Proposed Procedures p EGD & Diagnostic Colonoscopy - Emil Burden MD Date/Time: 12/18/24 10:10 Surgeon: Lane Davis MD Pre Op Diagnosis: GI bleed Patient Data Age: 74 Gender: F Height: 1.65 m Weight: 129.4 kg Last Vital Signs Temp 97.8 F 12/18/24 09:38 Pulse 88 12/18/24 09:38 Resp 20 12/18/24 09:38 BP 139/84 12/18/24 09:38 Pulse Ox 96 12/18/24 09:38 O2 Del Method Room Air 12/18/24 09:38 FiO2 21 12/17/24 20:24 Allergies Allergy/AdvReac Type Severity Reaction Status Date / Time aspirin Allergy Mild throat Verified 12/18/24 09:37 swelling codeine Allergy Mild hallucinati Verified 12/18/24 09:37 ons meperidine Allergy Mild tachycardia Verified 12/18/24 09:37 NSAIDS (Non-Steroidal Allergy Mild throat Verified 12/18/24 09:37 Anti-Inflamma swelling Penicillins Allergy Mild rash Verified 12/18/24 09:37 Quinolones Allergy Mild HIVES Verified 12/18/24 09:37 vancomycin Allergy Mild HIVES Verified 12/18/24 09:37 red dye Allergy Unknown Hives Verified 12/18/24 09:37 Home Medications ?Medication ?Instructions ?Recorded ?Confirmed ?Type [id number] 4 mg-folic acid 1 tablet PO DAILY 02/13/24 12/16/24 History 200 mcg-vit K 25 mcg-lutein tablet (Centrum Minis Women 50 Plus) diltiazem HCl 180 mg capsule,24 180 mg PO DAILY #90 caps 03/07/24 12/16/24 Rx hr,extended release acetaminophen 325 mg capsule 500 mg PO Q6H PRN fever or pain 08/28/24 12/16/24 History (Tylenol) omeprazole 20 mg capsule,delayed See Rx Instructions .Route 11/22/24 12/16/24 Rx release .COMPLEX #90 caps Laboratory Tests 12/18/24 12/18/24 04:30 06:12 WBC 7.9 K/mm3 (4.5-10.0) RBC 4.57 M/mm3 (4.2-5.4) Hgb 14.0 g/dL (12.0-15.0) Hct 43.5 % (37.0-47.0) MCV 95.2 fl (80-100) MCH 30.6 pg (26-34) MCHC 32.2 g/dl (32-36) RDW 14.4 % (11.5-14.5) Plt Count 268 k/mm3 (150-375) MPV 9.3 fl (7.4-10.4) Immature Gran % (Auto) 0.4 % (0-0.5) Neut % (Auto) 57.7 % (45.5-73.1) Lymph % (Auto) 29.9 % (18.3-44.2) [place] % (Auto) 9.3 H % (2.6-8.5) Eos % (Auto) 1.8 % (0-4.4) Baso % (Auto) 0.9 % (0.2-1.2) Lymph # (Auto) 2.35 K/mm3 (0.9-3.2) [place] # (Auto) 0.7 H K/mm3 (0.1-0.6) Eos # (Auto) 0.1 K/mm3 (0-0.3) Baso # (Auto) 0.1 K/mm3 (0.0-0.1) Abs Immat Gran (auto) 0.03 K/mm3 (0.00-0.031) Absolute Neuts (auto) 4.5 K/mm3 (1.3-6.7) Absolute Nucleated RBC 0.000 K/mm3 (0.0-0.012) Nucleated RBC % 0.0 % (0.0-0.2) Sodium 137 mmol/L (137-145) Potassium 4.0 mmol/L (3.4-5.0) Chloride 107 mmol/L (98-107) Carbon Dioxide 23 mmol/L (22-30) Anion Gap 7 mmol/L (4-12) BUN 12 D mg/dL (7-17) Creatinine 0.77 mg/dL (0.7-1.0) Estim Creat Clear Calc 73 ml/min Estimated GFR > 60 (59 - ) Glucose 110 mg/dL (65-110) Calcium 8.2 L mg/dL (8.4-10.2) Magnesium 2.2 mg/dL (1.6-2.3) Total Bilirubin 1.1 mg/dL (0.2-1.3) AST 31 U/L (14-36) ALT 40 H U/L (6-35) Alkaline Phosphatase 90 U/L (38-126) Total Protein 7.1 g/dL (6.3-8.2) Albumin 3.8 g/dL (3.5-5.1) Patient hx anesthesia problems: none Family hx anesthesia problems: none Results Review: All pre-operative results and documents have been reviewed as part of the pre- operative evaluation. [facility] Past Medical History Medical History Chronic pain of both knees URI, acute Lower leg edema Gastro-esophageal reflux disease without esophagitis Dorsalgia WEINER (dyspnea on exertion) Cough Atypical chest pain Annual physical exam Degenerative arthritis of knee, bilateral Severe medial compartment arthritis both knees Pure hypercholesterolemia Essential (primary) hypertension Surgical History Surgical History History of breast biopsy History of cholecystectomy History of nasal surgery History of hysterectomy Family History Family History Father Family history of diabetes mellitus in first degree relative, Onset Age: 72 Heart attack Lung cancer Arthritis Mother Hypertension Heart attack Arthritis Sibling Heart attack Other Cerebrovascular accident Diabetes mellitus Social History Social History Smoking status: Never smoker Second hand tobacco smoke exposure: No Smoking end date: 06/05/70 Alcohol intake: never Substance use: never Substance use type: does not use Do You Feel Safe in your Home?: Yes Lack of Transportation: No Lack of Food: Never True Current Housing: I Have Housing Concerned About Future Housing: No Difficulty Paying Gas/Electric Bills: No Difficulty Paying for Meds: No Currently Unemployed: No Education: Bachelor's Degree Difficulty w/ Childcare or Family Care: No Living arrangements: alone 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 Gender identity (if verbalized by the patient): Female Spiritual care concerns: No Anes - Eval Final PreProcedure Day of Procedure 12/18/24 10:10 Patient weight: morbidly obese Heart: regular rate and rhythm Lungs: clear to auscultation Airway: Mallampati scale class III Neurological: alert and oriented Last oral intake: >/= 8 hours ASA classification: III Emergent: no Anesthetic plan: proceed Anesthesia type and monitoring: general GIVS and standard monitoring Results Review: All pre-operative results and documents have been reviewed as part of the pre- operative evaluation. Informed Consent: The patient's anesthetic plan and its attendant risks and benefits were discussed with the patient/family/POA. Questions were solicited and answers provided to the satisfaction of the patient/family/POA.
--- NOTE | 2024-12-18 10:35 | SUR.OPER ---
EGD ended at 1030, colon began at 1035.
[2024-12-18 11:01] VITALS: BP 128/73; PULSE 88; RESP 25; O2SAT 94
--- NOTE | 2024-12-18 11:01 | S_PTH ---
PATIENT: Amanda Hummel LOC: [id number] U#:[id number] AGE/SX: 74/F ROOM: 258 RE12/17/[address]: Lane Davis MD : [id number] BED: 01 DIS: 12/18/2024 SPEC #: [id number] RECD: 12/18/24 13:36 STATUS: ARTEMIO REPatti #: [id number] SHARRON: 12/18/24 11:[address]: Emil Burden DEPT: [facility] Surgical RECD BY: Milli Chowdhury ENTERED: 12/18/24 13:36 SP TYPE: Surgical OTHR DR: DO Rodriguez Oliveira MD Amardeep Shrestha, MD Tissues: A - Colon Polypectomy B - Colon Polypectomy Procedures: Hematoxylin and Eosin Stain Gross and Microscopic Level 4
--- NOTE | 2024-12-18 11:05 | WPDGIPROGNO ---
Progress Note: A&P Assessment and Plan (1) GI (gastrointestinal bleed): Code(s): K92.2 - Gastrointestinal hemorrhage, unspecified Status: Acute Assessment and Plan: see EGD and colonoscopy reports. No active bleeding. The bleeding source is clearly complicated/ prolapsed hemorrhoids. She also has diverticulosis but is not the cause of bleeding. Hematocrit did not change significantly. She can be discharged home and advise a surgical consultation as an outpatient for hemorrhoidal treatment. Subjective Date/time seen: 12/18/24 11:05 Objective Data Vital Signs Vital Signs: Vital Signs - 24 hr 12/17/24 14:00 12/17/24 20:11 12/17/24 20:24 Temperature 97.1 F L 97.8 F Pulse Rate 82 84 84 Respiratory Rate 14 20 20 Blood Pressure 147/86 H 146/80 H Pulse Oximetry 97 98 98 Oxygen Delivery Room Air Fraction of Inspired Oxygen 21 12/18/24 04:41 12/18/24 09:38 12/18/24 11:01 Temperature 97.6 F 97.8 F Pulse Rate 86 88 88 Respiratory Rate 20 20 25 H Blood Pressure 138/69 139/84 128/73 Pulse Oximetry 93 96 94 Oxygen Delivery Room Air Room Air Fraction of Inspired Oxygen Intake/Output Intake/Output: Intake & Output 12/15/24 12/16/24 12/17/24 12/18/24 23:59 23:59 23:59 23:59 Intake Total 1796 0 Output Total 1600 600 Balance 196 -600 Meds/Results Medications: Active Medications Generic Name Dose Route Start Last Admin Trade Name Freq PRN Reason Stop Dose Admin Acetaminophen 500 mg 12/17/24 15:31 Acetaminophen 500 Mg Tablet PO Q6H PRN fever or pain Diltiazem HCl 180 mg 12/18/24 09:00 12/18/24 09:18 Diltiazem Hcl Cd 180 Mg Cap.24hr PO 180 mg DAILY [facility] Administration Lactated Ringer's 1,000 mls @ 150 mls/hr 12/18/24 09:40 12/18/24 10:59 Lr - Lactated Ringers Iv IV CONT 150 mls/hr .Q6H40M [facility]fusion Multivitamins/Minerals 1 tab 12/18/24 09:00 12/18/24 09:19 Multivitamins /C Lutein (Centrum Silver) Tablet *Bkc PO Not Given QAM [facility] Labs Labs: Laboratory Results - last 24 hr 12/18/24 12/18/24 04:30 06:12 WBC 7.9 RBC 4.57 Hgb 14.0 Hct 43.5 MCV 95.2 MCH 30.6 MCHC 32.2 RDW 14.4 Plt Count 268 MPV 9.3 Immature Gran % (Auto) 0.4 Neut % (Auto) 57.7 Lymph % (Auto) 29.9 [place] % (Auto) 9.3 H Eos % (Auto) 1.8 Baso % (Auto) 0.9 Lymph # (Auto) 2.35 [place] # (Auto) 0.7 H Eos # (Auto) 0.1 Baso # (Auto) 0.1 Abs Immat Gran (auto) 0.03 Absolute Neuts (auto) 4.5 Absolute Nucleated RBC 0.000 Nucleated RBC % 0.0 Sodium 137 Potassium 4.0 Chloride 107 Carbon Dioxide 23 Anion Gap 7 BUN 12 D Creatinine 0.77 Estim Creat Clear Calc 73 Estimated GFR > 60 Glucose 110 Calcium 8.2 L Magnesium 2.2 Total Bilirubin 1.1 AST 31 ALT 40 H Alkaline Phosphatase 90 Total Protein 7.1 Albumin 3.8
[2024-12-18 11:11] VITALS: BP 131/73; PULSE 92; RESP 22; O2SAT 94
[2024-12-18 11:21] VITALS: BP 133/64; PULSE 84; RESP 16; O2SAT 94
--- NOTE | 2024-12-18 12:14 | PM.DS ---
DS: Admitting Diagnosis Discharge Date 12/18/2024 Admitting Diagnosis rectal bleeding DS: Discharge Diagnosis Discharge Diagnosis (1) Essential hypertension: Code(s): I10 - Essential (primary) hypertension Status: Acute (2) Obesity: Code(s): E66.9 - Obesity, unspecified Status: Acute (3) Esophageal reflux disease: Qualifiers: Esophagitis presence: esophagitis presence not specified Qualified Code(s): K21.9 - Gastro-esophageal reflux disease without esophagitis Code(s): K21.9 - Gastro-esophageal reflux disease without esophagitis Status: Acute (4) Hematochezia: Code(s): K92.1 - Melena Status: Acute (5) GI (gastrointestinal bleed): Code(s): K92.2 - Gastrointestinal hemorrhage, unspecified Status: Acute DS: Summary Hospital Course Hospital Course: This is a pleasant 73-year-old female with a history of GERD, adenomatous colon polyps (colonoscopy in 2016), degenerative disc disease, hyperlipidemia, hypertension, hysterectomy, cholecystectomy. She presents to [facility] ER on 12/15/2024 with a complaint of bright red blood per rectum worse than the last month. She is established with [facility], last saw them in the office on 11/28. For about a month now she has had bright red blood in her stool however minimal amounts. On the day of admission it was worse since she was passing large clots. She denies any blood thinners, aspirin use, tobacco, alcohol, illicit drug use. Prior to this she has had normal bowel movements every day. She reports some aching in a bandlike fashion across the abdominal area the level of the belly button. But no nausea or vomiting or diarrhea. No fever. Patient was scheduled for endoscopy on the day of admission. From the ER gastroenterology was consulted and they advised inpatient admission. Hemodynamically stable. Hemoglobin stable. Patient rest comfortably in bed. GI consulted here inpatient. Protonix 40 mg daily.s/p EGD and colonoscopy : colonscopy with polyps which was removed and also had hemorrhoids. if persistent , she will need to see surgeon for removal. egd with polyps which was revmoed. paula per gi for discharge. Code status full code DVT prophylaxis SCDs Hypertension Hyperlipidemia History of GERD History of adenomatous colon polyps. Time Spent with Patient Time attestation: Total time spent providing and/or coordinating discharge services:35 mins Exam Narrative: GENERAL: The patient is well developed, not in acute distress HEENT: Nonicteric sclerae, PERRLA, EOMI. Oropharynx clear. Moist mucous membranes. Conjunctivae appear well perfused. CHEST: Chest wall is nontender. HEART: Regular rate and rhythm without murmur, rubs, or gallops LUNGS: Clear to auscultation bilaterally. no respiratory distress ABDOMEN: Soft, positive bowel sounds, non-tender, no organomegaly. SKIN: No rash, no excessive bruising, petechiae, or purpura. NEUROLOGIC: Cranial nerves II-XII intact, alert and oriented x 3, no gross motor deficits EXTREMITIES: no edema, cyanosis or clubbing DS: Data Data Completed and Pending Pending studies at discharge: Pending at discharge 12/18/24 11:01 Surgical [PTH] Routine Labs on day of discharge: Labs from last 24 hours 12/18/24 12/18/24 06:12 04:30 WBC 7.9 RBC 4.57 Hgb 14.0 Hct 43.5 MCV 95.2 MCH 30.6 MCHC 32.2 RDW 14.4 Plt Count 268 MPV 9.3 Immature Gran % (Auto) 0.4 Neut % (Auto) 57.7 Lymph % (Auto) 29.9 [place] % (Auto) 9.3 H Eos % (Auto) 1.8 Baso % (Auto) 0.9 Lymph # (Auto) 2.35 [place] # (Auto) 0.7 H Eos # (Auto) 0.1 Baso # (Auto) 0.1 Abs Immat Gran (auto) 0.03 Absolute Neuts (auto) 4.5 Absolute Nucleated RBC 0.000 Nucleated RBC % 0.0 Sodium 137 Potassium 4.0 Chloride 107 Carbon Dioxide 23 Anion Gap 7 BUN 12 D Creatinine 0.77 Estim Creat Clear Calc 73 Estimated GFR > 60 Glucose 110 Calcium 8.2 L Magnesium 2.2 Total Bilirubin 1.1 AST 31 ALT 40 H Alkaline Phosphatase 90 Total Protein 7.1 Albumin 3.8 Discharge Plan Discharge Attending physician on discharge: Lane Davis Consulting providers: Rodriguez Luna Discharging Clinician: Lane Davis Anticipated Discharge Date/Time: 12/18/24 12:15 Patient Disposition: Home Activity: as tolerated Diet: regular Patient Instructions: Antibiotic Form Patient Language: Citizen Of [place] Stand Alone Forms: General Discharge Information Follow-up/Referrals: Carlos Cheng DO [Primary Care Provider] - 1 Week Rodriguez Luna MD [Physician] - 4 Weeks Discharge Medications: Continued acetaminophen [Tylenol] 325 mg capsule 500 mg PO Q6H PRN (Reason: fever or pain) Centrum Minis Women 50 Plus 4 mg iron-200 mcg-25 mcg tablet 1 tablet PO DAILY diltiazem HCl 180 mg capsule,extended release 24 hr 180 mg PO DAILY Qty: 90 3RF omeprazole 20 mg capsule,delayed release(DR/EC) See Rx Instructions .ROUTE .COMPLEX Qty: 90 0RF Dose Instruction: TAKE 1 CAPSULE BY MOUTH EVERY DAY Rx Instructions: TAKE 1 CAPSULE BY MOUTH EVERY DAY Date of admission: 12/17/24 08:05 Primary Care Provider: Carlos Cheng Admitting Provider: Lane Davis Attending physician on admission: Lane Davis Condition: Stable
--- NOTE | 2024-12-18 15:25 | P.CDI_ITS ---
CDI Query Clarification Request Patient with a BMI of 47.5 please provide a diagnosis to accompany this finding: * Overweight * Obesity * Morbid Obesity * Other/Unknown <Emily Clement RN - Last Filed: 12/18/24 15:26> Provider Comments Morbid obesity <Lane Davis MD - Last Filed: 12/27/24 07:18>
--- NOTE | 2024-12-18 15:25 | WPDCDIQUERY2 ---
CDI Query Clarification Request Patient with a BMI of 47.5 please provide a diagnosis to accompany this finding: Overweight Obesity Morbid Obesity Other/Unknown <Emily Clement RN - Last Filed: 12/18/24 15:26> Provider Comments Morbid obesity <Lane Davis MD - Last Filed: 12/27/24 07:18>
== END 2024-12-18 13:11 | disposition home or self-care (01) | DRG 394 ==
LOC: ANHED 18:18 → ANH3MEDSUR 19:11 → ANH2MED 20:24
PROVIDERS: General Practice; Internal Medicine Gastroenterology; Nurse Practitioner Family; Admitting Provider Internal Medicine; Emergency Provider Emergency Medicine; PCP Internal Medicine; Visit Provider Internal Medicine
PROC: 0DJ08ZZ Inspection of Upper Intestinal Tract, Via Natural or Artificial Opening Endoscopic (ICD-10-PCS; CPT 45378; principal; 2024-12-18 14:45)
DX: K64.8 Other hemorrhoids (principal); Z68.42 Body mass index [BMI] 45.0-49.9, adult; E66.01 Morbid (severe) obesity due to excess calories; K31.7 Polyp of stomach and duodenum; K44.9 Diaphragmatic hernia without obstruction or gangrene; K63.5 Polyp of colon; K57.30 Diverticulosis of large intestine without perforation or abscess without bleeding; K21.9 Gastro-esophageal reflux disease without esophagitis; R10.13 Epigastric pain; R11.0 Nausea; I10 Essential (primary) hypertension; E78.5 Hyperlipidemia, unspecified; M51.9 Unspecified thoracic, thoracolumbar and lumbosacral intervertebral disc disorder; Z79.899 Other long term (current) drug therapy; Z86.0101 Personal history of adenomatous and serrated colon polyps; Z90.49 Acquired absence of other specified parts of digestive tract; Z90.710 Acquired absence of both cervix and uterus
CPT/HCPCS: 36415; 80053; 82728; 83540; 83550; 83735; 85014; 85018; 85025; 85027; 85610; 85730; 86850; 86900; 86901; 88305; 99285; A9270; G0378; J2470; J2704; J7120